=== PATIENT | male | born 1935 | race Caucasian/White ===

== ENCOUNTER 2018-01-16 11:04 | Observation (INO) ==
--- NOTE | 2018-01-16 11:49 | ED ---
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 Symptoms started this morning at 9:30 AM 1 hour after eating toast/cheese/a banana. He describes it as a sharp/aching pain in the epigastrium that was radiating into the chest and into the lower belly. Symptoms lasted for 1 hour and then resolved. He reports that for the past 3 years he has had similar but more mild pain on a regular basis, typically postprandial. He was seeing a labor delivery rn at the [facility] as well as specialist at the [facility] for evaluation of this pain in 2014. He was told that there is no obvious etiology for this pain. According to notes he did undergo stenting of the superior mesenteric artery in 2014 with a diagnosis of chronic stenosis. He is currently asymptomatic. He has denied any cough, congestion, shortness of breath, nausea, vomiting, diarrhea, flank pain. He has no other complaints. Primary care physician is Dr. Valencia. Related Data Home Medications Medication Instructions Recorded Confirmed atorvastatin 20 mg PO DAILY 01/16/18 01/16/18 lisinopril-hydrochlorothiazide 1 tab PO DAILY 01/16/18 01/16/18 rivaroxaban 20 mg PO DAILY 01/16/18 01/16/18 Allergies Allergy/AdvReac Type Severity Reaction Status Date / Time No Known Allergies Allergy Verified 01/16/18 11:15 Review of Systems ROS: all other systems reviewed are negative PMFSH Medical History Medical History DVT (deep venous thrombosis) (Acute) Diabetes (Acute) H/O endoscopy (Acute) Hypertension (Acute) Surgical History Surgical History Hx of colonoscopy (Acute) Social History Social History Substance History: No History of Abuse Smoking Status: Never smoker How Often Do You Have a Drink Containing Alcohol: Never Recent Travel in [facility] within the Last 8 Weeks: No Recent Out of Country Travel within the Last 8 Weeks: No Immunization History Tetanus Immunization: Unsure Exam Narrative Exam Narrative: GENERAL: Well-developed well-nourished male in no acute distress SKIN: Warm and dry. HEAD: Atraumatic. Normocephalic. EYES: Pupils equal and round. No scleral icterus. No injection or drainage. ENT: No nasal bleeding or discharge. Mucous membranes pink and moist. NECK: Trachea midline. No JVD. CARDIOVASCULAR: Regular rate and rhythm. No murmur appreciated. RESPIRATORY: No accessory muscle use. Clear to auscultation. Breath sounds equal bilaterally. GASTROINTESTINAL: Abdomen soft, non-tender, nondistended. Hepatic and splenic margins not palpable. MUSCULOSKELETAL: No obvious deformities. No clubbing. No cyanosis. No edema. NEUROLOGICAL: Awake and alert. No obvious cranial nerve deficits. Motor grossly within normal limits. Normal speech. PSYCHIATRIC: Appropriate mood and affect; insight and judgment normal. Course Initial Documented Vital Signs Temperature 97.5 F L 01/16/18 11:09 Pulse Rate 70 01/16/18 11:09 Respiratory Rate 18 01/16/18 11:09 Blood Pressure 176/102 H 01/16/18 11:09 Pulse Oximetry 95 01/16/18 11:09 Last Documented Vital Signs Temperature 97.5 F L 01/16/18 11:09 Pulse Rate 66 01/16/18 11:16 Respiratory Rate 18 01/16/18 11:16 Blood Pressure 176/102 H 01/16/18 11:16 Pulse Oximetry 98 01/16/18 11:16 Medical Decision Making MDM Narrative Medical decision making narrative: The patient was placed on ECG monitoring pulse oximetry. A 12-lead EKG was obtained. Lab work, CT angiogram of the abdomen pelvis ordered. Lab work is been reviewed. Lactic acid is elevated at 3, he was given 1 L normal saline bolus and 2. His liver enzymes are elevated, total bilirubin is 1.3, AST 365, ALT 161. CT angiogram reveals atherosclerotic changes as well as a mildly distended, otherwise unremarkable. At this point in time the plan will be to admit the patient for observation. I discussed with my attending. Medical Screen Exam Complete: Yes Emergency Medical Condition: Yes Differential Diagnosis Differential Diagnosis: Mesenteric ischemia, peptic ulcer disease, gastritis, acute coronary syndrome, aortic dissection, biliary colic Lab Data Result diagrams: 01/16/18 11:55 01/16/18 11:55 Lab Results 01/16/18 01/16/18 01/16/18 Range/Units 11:55 11:55 11:55 WBC 6.4 (4.0-11.0) th/mm3 RBC 4.78 (4.50-5.90) mil/mm3 Hgb 15.6 (13.0-17.0) gm/dL Hct 45.2 (39.0-51.0) % MCV 94.5 (80.0-100.0) fL MCH 32.6 (27.0-34.0) pg MCHC 34.5 (32.0-36.0) % RDW 12.7 (11.6-17.2) % Plt Count 209 (150-450) th/mm3 MPV 9.1 (7.0-11.0) fL Neut % (Auto) 54.5 (16.0-70.0) % Lymph % (Auto) 35.1 (9.0-44.0) % [place] % (Auto) 8.5 H (0.0-8.0) % Eos % (Auto) 1.4 (0.0-4.0) % Baso % (Auto) 0.5 (0.0-2.0) % Neut # (Auto) 3.5 (1.8-7.7) th/mm3 Lymph # (Auto) 2.2 (1.0-4.8) th/mm3 [place] # (Auto) 0.5 (0.0-0.9) th/mm3 Eos # (Auto) 0.1 (0.0-0.4) th/mm3 Baso # (Auto) 0.0 (0.0-0.2) th/mm3 WBC Differential . Differential Comment Auto diff final PT 12.2 H (9.8-11.6) sec INR 1.2 Ratio APTT 30.4 (23.4-31.7) sec Sodium 140 (136-145) meq/L Potassium 3.8 (3.5-5.1) meq/L Chloride 106 (98-107) meq/L Carbon Dioxide 23.3 (21.0-32.0) meq/L Anion Gap 11 (5-15) meq/L BUN 20 H (7-18) mg/dL Creatinine 1.12 (0.60-1.30) mg/dL Estimated GFR 63 L (>89) mL/min Random Glucose 172 H (74-106) mg/dL Lactic Acid (0.4-2.0) mmol/L Calcium 8.6 (8.5-10.1) mg/dL Magnesium 1.9 (1.5-2.5) mg/dL Total Bilirubin 1.3 H (0.2-1.0) mg/dL AST 365 H (15-37) U/L ALT 161 H (12-78) U/L Alkaline Phosphatase 75 (45-117) U/L Total Creatine Kinase 103 (39-308) U/L CK-MB (CK-2) 1.8 (0.5-3.6) ng/mL Troponin I Less than 0.02 L (0.02-0.05) ng/mL Total Protein 7.2 (6.4-8.2) g/dL Albumin 3.9 (3.4-5.0) g/dL Lipase 166 (73-393) U/L Urine Color (Yellw/Straw) Urine Clarity (Clear) Urine pH (5.0-8.5) Ur Specific [place] (1.002-1.035) Urine Protein (Neg-Trace) mg/dL Urine Glucose (UA) (Negative) mg/dL Urine Ketones (Negative) mg/dL Urine Occult Blood (Negative) Urine Nitrate (Negative) Urine Bilirubin (Negative) Urine Urobilinogen (Less than 2) mg/dL Ur Leukocyte Esterase (Negative) Urine RBC (0-3) /hpf Urine WBC (0-5) /hpf Micro UA Comment Ur Microscopic Review Urine Culture Comments 01/16/18 01/16/18 01/16/18 Range/Units 11:55 12:41 14:35 WBC (4.0-11.0) th/mm3 RBC (4.50-5.90) mil/mm3 Hgb (13.0-17.0) gm/dL Hct (39.0-51.0) % MCV (80.0-100.0) fL MCH (27.0-34.0) pg MCHC (32.0-36.0) % RDW (11.6-17.2) % Plt Count (150-450) th/mm3 MPV (7.0-11.0) fL Neut % (Auto) (16.0-70.0) % Lymph % (Auto) (9.0-44.0) % [place] % (Auto) (0.0-8.0) % Eos % (Auto) (0.0-4.0) % Baso % (Auto) (0.0-2.0) % Neut # (Auto) (1.8-7.7) th/mm3 Lymph # (Auto) (1.0-4.8) th/mm3 [place] # (Auto) (0.0-0.9) th/mm3 Eos # (Auto) (0.0-0.4) th/mm3 Baso # (Auto) (0.0-0.2) th/mm3 WBC Differential Differential Comment PT (9.8-11.6) sec INR Ratio APTT (23.4-31.7) sec Sodium (136-145) meq/L Potassium (3.5-5.1) meq/L Chloride (98-107) meq/L Carbon Dioxide (21.0-32.0) meq/L Anion Gap (5-15) meq/L BUN (7-18) mg/dL Creatinine (0.60-1.30) mg/dL Estimated GFR (>89) mL/min Random Glucose (74-106) mg/dL Lactic Acid 3.0 H 2.0 (0.4-2.0) mmol/L Calcium (8.5-10.1) mg/dL Magnesium (1.5-2.5) mg/dL Total Bilirubin (0.2-1.0) mg/dL AST (15-37) U/L ALT (12-78) U/L Alkaline Phosphatase (45-117) U/L Total Creatine Kinase (39-308) U/L CK-MB (CK-2) (0.5-3.6) ng/mL Troponin I (0.02-0.05) ng/mL Total Protein (6.4-8.2) g/dL Albumin (3.4-5.0) g/dL Lipase (73-393) U/L Urine Color Yellow (Yellw/Straw) Urine Clarity Clear (Clear) Urine pH 7.0 (5.0-8.5) Ur Specific [place] 1.016 (1.002-1.035) Urine Protein Negative (Neg-Trace) mg/dL Urine Glucose (UA) Negative (Negative) mg/dL Urine Ketones Negative (Negative) mg/dL Urine Occult Blood Negative (Negative) Urine Nitrate Negative (Negative) Urine Bilirubin Negative (Negative) Urine Urobilinogen Less than 2 (Less than 2) mg/dL Ur Leukocyte Esterase Negative (Negative) Urine RBC 1 (0-3) /hpf Urine WBC 1 (0-5) /hpf Micro UA Comment Culture not ind Ur Microscopic Review Not Reportable Urine Culture Comments Culture not ind Imaging Data Radiologist's impression: Abdomen/Pelvis CTA 01/16/18 12:26 CONCLUSION: 1. Atherosclerotic change seen throughout the arterial system. Metallic stents are seen at the celiac and SMA. 2. Interstitial disease at the lung bases. 3. Nonspecific distended gallbladder. 4. Degenerative change at the lower lumbar spine with grade 1 anterior spondylolisthesis of L4 on L5. Discharge Plan Discharge Disposition Patient Disposition: ED Admit(ED Internal Use Only) Discharge Condition Condition: Stable Discharge Order Discharge Orders: ED Use Only Admit Order (Routine); Ordered 01/16/18 Ordered By: Wally Dugan Discharge Details Diagnosis: Epigastric abdominal pain, Elevated liver enzymes Physicians Team ED Provider: Espinoza Nunez ED Midlevel Provider: Wally Dugan Primary Care Provider: UNKNOWN, Rxs /Orders / Referrals /Forms Prescriptions: No Action atorvastatin 20 mg Tablet 20 mg PO DAILY RF: 0 lisinopril-hydrochlorothiazide 20-12.5 mg Tablet 1 tab PO DAILY RF: 0 rivaroxaban 20 mg Tablet 20 mg PO DAILY RF: 0 Status ED Status: With Doctor
[2018-01-16 12:05] LABS: Baso % (Auto) 0.5 % (0.0-2.0); Eos # (Auto) 0.1 th/mm3 (0.0-0.4); Eos % (Auto) 1.4 % (0.0-4.0); Hematocrit 45.2 % (39.0-51.0); Hemoglobin 15.6 gm/dL (13.0-17.0); Lymph # (Auto) 2.2 th/mm3 (1.0-4.8); Lymph % (Auto) 35.1 % (9.0-44.0); Mean Corpuscular HGB Conc 34.5 % (32.0-36.0); Mean Corpuscular Hemoglobin 32.6 pg (27.0-34.0); Mean Corpuscular Volume 94.5 fL (80.0-100.0); Mean Platelet Volume 9.1 fL (7.0-11.0); Mono # (Auto) 0.5 th/mm3 (0.0-0.9); Mono % (Auto) 8.5 % (0.0-8.0); Neut # (Auto) 3.5 th/mm3 (1.8-7.7); Neut % (Auto) 54.5 % (16.0-70.0); Platelet Count 209 th/mm3 (150-450); Red Blood Count 4.78 mil/mm3 (4.50-5.90); Red Cell Distribution Width 12.7 % (11.6-17.2); White Blood Count 6.4 th/mm3 (4.0-11.0)
[2018-01-16 12:16] LABS: Activated Partial Thrombo Time 30.4 sec (23.4-31.7); INR 1.2 Ratio; Prothrombin Time 12.2 sec (9.8-11.6)
[2018-01-16 12:25] LABS: Albumin 3.9 g/dL (3.4-5.0); Anion Gap 11 meq/L (5-15); Aspartate Aminotransferase 365 U/L (15-37); Blood Urea Nitrogen 20 mg/dL (7-18); Calcium 8.6 mg/dL (8.5-10.1); Carbon Dioxide 23.3 meq/L (21.0-32.0); Chloride 106 meq/L (98-107); Glomerular Filtration Rate 63 mL/min (>89); Glucose,Random 172 mg/dL (74-106); Lipase 166 U/L (73-393); Magnesium 1.9 mg/dL (1.5-2.5); Potassium 3.8 meq/L (3.5-5.1); Sodium 140 meq/L (136-145)
[2018-01-16 12:30] LABS: Alanine Aminotransferase 161 U/L (12-78); Alkaline Phosphatase 75 U/L (45-117); Creatine Kinase 103 U/L (39-308); Total Protein 7.2 g/dL (6.4-8.2)
[2018-01-16 12:42] LABS: Creatine Kinase MB 1.8 ng/mL (0.5-3.6)
[2018-01-16] MEDS ORDERED: Sod Chloride 0.9% Inj 1,000 ML IV.SIG SCH (12:45)
[2018-01-16 12:58] LABS: Bilirubin,Urine Negative (Negative); Clarity,Urine Clear (Clear); Color,Urine Yellow (Yellw/Straw); Glucose,Urine (UA) Negative (Negative); Leukocyte Esterase,Urine Negative (Negative); Nitrite,Urine Negative (Negative); Specific Gravity,Urine 1.016 (1.002-1.035)
--- NOTE | 2018-01-16 16:05 | CT ---
EXAM DATE: 01/16/2018 2:21 PM EST AGE/SEX: 82 years / Male INDICATIONS: Intermittent abdominal pain. CLINICAL DATA: This is the patient's initial encounter. Patient reports that signs and symptoms have been present for > 1 year and indicates a pain score of 5/10. MEDICAL/SURGICAL HISTORY: Carcinoma, colon. Deep venous thrombosis. Hypertension. . SMA stent RADIATION DOSE: 6.59 CTDI (mGy) COMPARISON: [facility], CTA ABDOMEN AND AORTA, 01/31/2016. . TECHNIQUE: Volumetric scanning was performed using a multi-row detector CT scanner during bolus infu noelle of 77 ml Omnipaque 350 (iohexol) nonionic water-soluble contrast as a single exam dose. The d sade was post processed with a variety of visualization algorithms including full volume maximum inten sity projection, multi-planar sliding thin slab reformation, curved planar reformation, and surface r endering techniques. Using automated exposure control and adjustment of the mA and/or kV according t o patient size, radiation dose was kept as low as reasonably achievable to obtain optimal diagnostic quality images. DICOM format image data is available electronically for review and comparison. FINDINGS: Abdominal Aorta: Atherosclerotic calcifications are seen. Metallic stents are seen at the celiac and proximal SMA. Calcified plaque is seen at the proximal renal arteries bilaterally. There is a mild a jong of soft plaque seen at the proximal left renal artery without a significant stenosis identified. Bifurcation: Calcified plaque is seen. Right Pelvis: Calcified plaque is seen. The right common iliac, internal iliac, and external iliac v essels are patent without luminal irregularity. Left Pelvis: Calcified plaque is seen. The left common iliac, internal iliac, and external iliac ves sels are patent and without luminal irregularity. There is some interstitial disease seen at the lung bases. The gallbladder is distended. The right re nal cyst are seen. There is a bowel anastomosis suture seen in the distal sigmoid region. There is gr hola 1 anterior spondylolisthesis of L4 on L5 likely secondary to facet hypertrophy. There is degenera tive change of the lower lumbar spine. CONCLUSION: 1. Atherosclerotic change seen throughout the arterial system. Metallic stents are seen at the darleen c and SMA. 2. Interstitial disease at the lung bases. 3. Nonspecific distended gallbladder. 4. Degenerative change at the lower lumbar spine with grade 1 anterior spondylolisthesis of L4 on L5 . Electronically signed by: Hayes Hui MD 01/16/2018 4:04 PM EST
[2018-01-16] MEDS ORDERED: Bisacodyl 10 MG Supp RECTAL PRN (17:22)
--- NOTE | 2018-01-16 18:54 | P.HPIM ---
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 Pain described to be sudden onset, sharp-burning, intense 10/10, radiated to RUQ,back and towards the navel as well. It lasted about 1 hour including when he arrived ER. It was non exertional. No associated nausea,vomiting. He feels constipated. No associated chest pain, diaphoresis or shortness of breath. Patient usually gets pain about 10 minutes after meals, due to his h/o chronic messenteric ischemia, but it usually does not last long. Since the pain was intense and persistent, he thought he was having a heart attack and he called EMS. He says EMS did ECG on arrival and informed him it was normal, but they gave him NTG which did not stop the pain, hence he was transported to the ER. On presentation to ER, patient had stable vitals, labs remarkable for elevated bilirubin 1.3, elevated transaminases, lactate 3,glucose 173, troponin negative. ECG was in NSR without acute ST-T changes. CT abdo/pelvis did not reveal any acute findings, however, there is mention of non specific distention of gall bladder. Patient reports his pain stopped spontaneously after about 5 minutes in the ER. He received IV fluids in the ER. Repeat lactate trended down to 2. Patient being admitted to CDU for observation. Review of Systems Review of Systems: all other systems reviewed are negative [facility] Medical History Medical History DVT (deep venous thrombosis) (Acute) Diabetes (Acute) H/O endoscopy (Acute) Hypertension (Acute) Surgical History Surgical History Hx of colonoscopy (Acute) Social History Social History Substance History: No History of Abuse Second Hand Smoke Exposure: No Smoking Status: Former smoker Tobacco Type: Cigarettes How Often Do You Have a Drink Containing Alcohol: Never Recent Travel in [facility] within the Last 8 Weeks: No Recent Out of Country Travel within the Last 8 Weeks: No Immunization History Tetanus Immunization: Unsure Medications and Allergies Allergies Allergy/AdvReac Type Severity Reaction Status Date / Time No Known Allergies Allergy Verified 01/16/18 11:15 Home Medications Medication Instructions Recorded Confirmed Type atorvastatin 20 mg PO DAILY 01/16/18 01/16/18 History lisinopril-hydrochlorothiazide 1 tab PO DAILY 01/16/18 01/16/18 History rivaroxaban 20 mg PO DAILY 01/16/18 01/16/18 History Active Medications: Active Medications Al Hydroxide/Mg Hydroxide (Milk Of Magnesia Liq) 30 ml PO Q12H PRN PRN Reason: Mild Constipation Bisacodyl (Dulcolax Supp) 10 mg RECTAL DAILY PRN PRN Reason: SEVERE CONSITIPATION Lactulose (Lactulose Liq) 30 ml PO DAILY PRN PRN Reason: SEVERE CONSITIPATION Ondansetron HCl (Zofran Inj) 4 mg IV.PUSH Q6H PRN PRN Reason: NAUSEA OR VOMITING Senna/Docusate Sodium (Hayley-Colace) 1 tab PO BID [facility] Sennosides (Senokot) 17.2 mg PO Q12H PRN PRN Reason: Moderate Constipation Sodium Chloride (Ns Flush) 2 ml IV.FLUSH PRN PRN PRN Reason: FLUSH AFTER USING IV ACCESS Sodium Chloride (Ns Flush) 2 ml IV.FLUSH PRN PRN PRN Reason: FLUSH AFTER USING IV ACCESS Sodium Chloride (Ns Flush) 2 ml IV.FLUSH BID [facility] Physical Exam Vital signs: Last Vital Signs Temp 97.5 F L 01/16/18 11:09 Pulse 65 01/16/18 17:30 Resp 18 01/16/18 17:30 BP 169/76 H 01/16/18 17:30 Pulse Ox 97 01/16/18 17:30 Intake & Output 01/14/18 01/15/18 01/16/18 01/17/18 06:59 06:59 06:59 06:59 Intake Total 1000 / 1000 Balance 1000 / 1000 Weight 90.718 kg Narrative: GENERAL: elderly man, in fair general condition, not in distress, hard of hearing. HEENT: not pale,anicteric CARDIOVASCULAR: Regular rate and rhythm without murmurs, gallops, or rubs. RESPIRATORY: Clear to auscultation. Breath sounds equal bilaterally. No wheezes , rales, or rhonchi. GASTROINTESTINAL: Abdomen soft, non-tender, nondistended. Normal active bowel sounds MUSCULOSKELETAL: Extremities without clubbing, cyanosis, or edema. NEURO: Alert & Oriented x4 to person, place, time, situation. Moves all ext x4 Results Labs CBC & Chem 7: 01/16/18 11:55 01/16/18 11:55 Imaging Impressions Abdomen/Pelvis CTA 01/16/18 12:26 CONCLUSION: 1. Atherosclerotic change seen throughout the arterial system. Metallic stents are seen at the celiac and SMA. 2. Interstitial disease at the lung bases. 3. Nonspecific distended gallbladder. 4. Degenerative change at the lower lumbar spine with grade 1 anterior spondylolisthesis of L4 on L5. Caprini VTE Risk Assessment Caprini VTE Risk Assessment: Moderate/High Risk (score >= 2) Caprini Risk Assessment Model: Point Value = 1 Point Value = 2 Point Value = 3 Point Value = 5 Age 41-60 Minor surgery BMI > 25 kg/m2 Swollen legs Varicose veins or History of unexplained or recurrent spontaneous Oral contraceptives or hormone replacement Sepsis (< 1 month) Serious lung disease, including pneumonia (< 1 month) Abnormal pulmonary function Acute myocardial infarction Congestive heart failure (< 1 month) History of inflammatory bowel disease Medical patient at bed rest Age 61-74 Arthroscopic surgery Major open surgery (> 45 min) Laparoscopic surgery (> 45 min) Malignancy Confined to bed (> 72 hours) Immobilizing plaster cast Central venous access Age >= 75 History of VTE Family history of VTE Factor V Leiden Prothrombin [id number] Lupus anticoagulant Anticardiolipin antibodies Elevated serum homocysteine Heparin-induced thrombocytopenia Other congenital or acquired thrombophilia Stroke (< 1 month) Elective arthroplasty Hip, pelvis, or leg fracture Acute spinal cord injury (< 1 month) Prophylaxis Regimen: Total Risk Factor Score Risk Level Prophylaxis Regimen 0-1 Low Early ambulation 2 Moderate Order ONE of the following: *Sequential Compression Device (SCD) *Heparin 5000 units SQ BID 3-4 Higher Order ONE of the following medications: *Heparin 5000 units SQ TID *Enoxaparin/Lovenox 40 mg SQ daily (WT < 150 kg, CrCl > 30 mL/min) *Enoxaparin/Lovenox 30 mg SQ daily (WT < 150 kg, CrCl > 10-29 mL/min) *Enoxaparin/Lovenox 30 mg SQ BID (WT < 150 kg, CrCl > 30 mL/min) AND/OR *Sequential Compression Device (SCD) 5 or more Highest Order ONE of the following medications: *Heparin 5000 units SQ TID (Preferred with Epidurals) *Enoxaparin/Lovenox 40 mg SQ daily (WT < 150 kg, CrCl > 30 mL/min) *Enoxaparin/Lovenox 30 mg SQ daily (WT < 150 kg, CrCl > 10-29 mL/min) *Enoxaparin/Lovenox 30 mg SQ BID (WT < 150 kg, CrCl > 30 mL/min) AND *Sequential Compression Device (SCD) Assessment and Plan Plan 82-yo m with h/o HTN, DVT on Xarelto, remote colon cancer, 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 Acute problem: 1.Epigastric pain:seems to have spontaneously subsided. Unclear etiology, but given elevated bilirubin and liver enzymes, differential could be passed gall stone. There is mention of non specific gall bladder swelling. obtain an abdominal ultrasound for further evaluation. He has a h/o chronic mesenteric ischemia, but this pain was out of character from his usual pain. The mild elevation of Lactate may be related to the chronic ischemia. lactate has normalized. I doubt this is cardiac pain, however, he has significant vascular risk, hence will trend troponin. Chronic stable conditions: #HTN-resume home medication #H/o DVT- on Xarelto #Chronic mesenteric ischemia s/p stent--continue statin.
[2018-01-16] MEDS: Rivaroxaban 20 MG Tablet PO SCH (20:00)
[2018-01-16] MEDS: Senna/Docusate Sodium 8.6/50 MG Tablet PO SCH (20:01)
[2018-01-17 07:37] VITALS: RESP 18
[2018-01-17 08:07] LABS: Alanine Aminotransferase 170 U/L (12-78); Albumin 3.7 g/dL (3.4-5.0); Anion Gap 11 meq/L (5-15); Aspartate Aminotransferase 112 U/L (15-37); Blood Urea Nitrogen 15 mg/dL (7-18); Calcium 8.5 mg/dL (8.5-10.1); Carbon Dioxide 23.3 meq/L (21.0-32.0); Chloride 109 meq/L (98-107); Glomerular Filtration Rate 71 mL/min (>89); Glucose,Random 123 mg/dL (74-106); Potassium 3.9 meq/L (3.5-5.1); Sodium 143 meq/L (136-145)
[2018-01-17 08:09] LABS: Alkaline Phosphatase 82 U/L (45-117)
--- NOTE | 2018-01-17 08:57 | US ---
EXAM DATE: 01/17/2018 8:40 AM EST AGE/SEX: 82 years / Male INDICATIONS: Abdominal pain. CLINICAL DATA: This is the patient's initial encounter. Patient reports that signs and symptoms have been present for 1 day and indicates a pain score of 0/10. MEDICAL/SURGICAL HISTORY: Hypertension. Diabetes. Deep vein thrombosis. . Endoscopy. [place] py. COMPARISON: [facility], CTA ABDOMEN & PELVIS W CONTRAST W 3D, 01/16/2018. . MEASUREMENTS: Liver:__ 19.4 cm. Common Bile Duct:___ 7mm. Right Kidney:___13.6 x 5.3 x 5.4 cm. Left Kidney:___10.5 x 4.3 x 5.7 cm. Spleen:___13.0 cm. FINDINGS: Liver: Enlarged with diffusely increased echogenicity without evidence for volume loss. Subtle centr al intrahepatic ductal dilatation. Portal Vein: Hepatopedal flow seen in portal vein. Common Duct: Measures 7 mm which is within normal limits given patient's age. Gallbladder: Gallbladder is distended with sludge in the gallbladder neck. There is a 9 x 18 x 9 mm isoechoic mass which appears to be adherent to the gallbladder wall near the fundus with questionabl e vascularity. Gallbladder wall is thickened given the degree of gallbladder distention measuring up to 3 mm . No pericholecystic fluid or sonographic Glez sign. Pancreas: The visualized portions are within normal limits Right Kidney: There are 2 anechoic cysts in the right kidney measuring 3.8 x 4.1 x 4.9 cm in the mid pole and 1.2 x 0.9 x 1.1 cm in the inferior pole. Otherwise, normal echogenicity and cortical thickn ess without hydronephrosis. Left Kidney: Normal echogenicity and cortical thickness. No mass or hydronephrosis. Ascites: None Pleural Effusion: None Spleen: No focal lesion. Aorta: Non aneurysmal. IVC: Within normal limits Other: None. CONCLUSION: 1. Enlarged echogenic liver consistent with hepatic steatosis. 2. Distended gallbladder containing sludge with mild diffuse gallbladder wall thickening. No signifi cant pericholecystic fluid. Findings are nonspecific but do not exclude acute cholecystitis if patien t has compelling clinical symptoms. 3. 18 mm isoechoic mass in the gallbladder wall fundus with questionable vascularity. Differential c onsiderations include gallbladder mass versus adherent sludge. Electronically signed by: Dylan Anton MD 01/17/2018 8:56 AM EST
[2018-01-17] MEDS ORDERED: Non-Formulary Drug (Lisinopril-Hydrochlorothiazide [Lisinopril-Hydrochlorothiazide] 1 TAB) PO SCH (09:00)
[2018-01-17] MEDS ORDERED: hydroCHLOROthiazide 25 MG Tablet PO SCH (09:00)
[2018-01-17] MEDS ORDERED: Lisinopril 20 MG Tablet PO SCH (09:00)
[2018-01-17] MEDS: Rivaroxaban 20 MG Tablet PO SCH (09:40)
[2018-01-17] MEDS: Senna/Docusate Sodium 8.6/50 MG Tablet PO SCH (09:53)
[2018-01-17 12:34] VITALS: BP 116/64; PULSE 77; TEMP 98.4; O2SAT 95
--- NOTE | 2018-01-17 12:49 | P.PN ---
Subjective Interval history: Nursing denies any acute changes overnight. Patient himself denies any nausea vomiting abdominal pain this morning. Tolerated breakfast as well with no pain. Addendum: Patient tolerated lunch well, medically stable for discharge. Discussed case with general surgery, joint plan of which patient was advised was to take last dose of Xarelto on 01/18/2018 and to follow-up closely with general surgery and office next week for possible cholecystectomy scheduling. Physical Exam Vital signs: Vital Signs 01/16/18 17:30 01/16/18 19:40 01/17/18 00:00 Temperature 98.1 F 97.9 F Pulse Rate 65 83 75 Respiratory Rate 18 18 18 Blood Pressure 169/76 H 141/69 H 145/73 H Pulse Oximetry 97 93 L 95 01/17/18 04:00 01/17/18 07:35 01/17/18 12:00 Temperature 98.0 F 97.6 F 98.4 F Pulse Rate 79 90 77 Respiratory Rate 16 18 18 Blood Pressure 134/74 135/73 116/64 Pulse Oximetry 93 L 93 L 95 Intake & Output 01/16/18 01/17/18 01/17/18 18:59 06:59 18:59 Intake Total 1000 / 1000 Balance 1000 / 1000 Weight 77.111 kg Intake: IV 1000 / 1000 NS Inj 1,000 ML @ 1000 mls/hr 1000 / 1000 IV.SIG BOLUS [facility] Rx#:[id number] Other: Date of Last Bowel Movement 01/17/18 Weight On Admission 77.111 kg Narrative: Abdomen soft, nontender, nondistended Clear lungs bilaterally, unlabored breathing Heart sounds regular rhythm no murmurs Awake alert, no acute distress Results - Labs CBC & Chem 7: 01/16/18 11:55 01/17/18 05:52 Laboratory Results - last 24 hr 01/16/18 01/16/18 01/17/18 12:41 14:35 05:52 Sodium 143 Potassium 3.9 Chloride 109 H Carbon Dioxide 23.3 Anion Gap 11 BUN 15 Creatinine 1.01 Estimated GFR 71 L Random Glucose 123 H Lactic Acid 2.0 Calcium 8.5 Total Bilirubin 1.2 H AST 112 H ALT 170 H Alkaline Phosphatase 82 Troponin I Total Protein 7.0 Albumin 3.7 Urine Color Yellow Urine Clarity Clear Urine pH 7.0 Ur Specific Swoope 1.016 Urine Protein Negative Urine Glucose (UA) Negative Urine Ketones Negative Urine Occult Blood Negative Urine Nitrate Negative Urine Bilirubin Negative Urine Urobilinogen Less than 2 Ur Leukocyte Esterase Negative Urine RBC 1 Urine WBC 1 Micro UA Comment Culture not ind Ur Microscopic Review Not Reportable Urine Culture Comments Culture not ind 01/17/18 10:44 Sodium Potassium Chloride Carbon Dioxide Anion Gap BUN Creatinine Estimated GFR Random Glucose Lactic Acid Calcium Total Bilirubin AST ALT Alkaline Phosphatase Troponin I Less than 0.02 L Total Protein Albumin Urine Color Urine Clarity Urine pH Ur Specific [place] Urine Protein Urine Glucose (UA) Urine Ketones Urine Occult Blood Urine Nitrate Urine Bilirubin Urine Urobilinogen Ur Leukocyte Esterase Urine RBC Urine WBC Micro UA Comment Ur Microscopic Review Urine Culture Comments - Imaging Impressions Abdomen/Pelvis CTA 01/16/18 12:26 CONCLUSION: 1. Atherosclerotic change seen throughout the arterial system. Metallic stents are seen at the celiac and SMA. 2. Interstitial disease at the lung bases. 3. Nonspecific distended gallbladder. 4. Degenerative change at the lower lumbar spine with grade 1 anterior spondylolisthesis of L4 on L5. Abdomen Ultrasound 01/17/18 00:00 CONCLUSION: 1. Enlarged echogenic liver consistent with hepatic steatosis. 2. Distended gallbladder containing sludge with mild diffuse gallbladder wall thickening. No significant pericholecystic fluid. Findings are nonspecific but do not exclude acute cholecystitis if patient has compelling clinical symptoms. 3. 18 mm isoechoic mass in the gallbladder wall fundus with questionable vascularity. Differential considerations include gallbladder mass versus adherent sludge. 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 Acute abdominal pain Postprandial nature, LFTs transiently elevated are now improving, suspicious for cholelithiasis -call this morning Discussed case with general surgery, will do a trial of advance diet for lunch , if stable can be discharged home with close follow-up in the office next week History of DVT 2 yrs ago Can continue Xarelto with last dose on 01/18/2018, appt w/ gen surg in 3 days, anticipated surgery next week
--- NOTE | 2018-01-17 16:02 | P.CONGS ---
[facility] Gen Surgery Consult Note Consult date: 01/17/18 Reason for consult: abdominal pain (Distended gallbladder) Requesting physician: Eleazar Caceres Narrative: CONSULTATION NOTE FOR SURGICAL ATTENDING, DR. JAIRO KENDALL This is an 82 year old male with a past medical history of remote colon cancer s /p resection in 2003, SMA syndrome with stenting, DVT and chronic mesenteric ischemia. The patient has had off and on epigastric abdominal pain after eating for the past 2-3 years which would resolve on its own. He has had a work up done at [facility] with no clear etiology of the abdominal pain per the patient. Yesterday, he developed epigastric pain that did not resolve on its own in a timely fashion and he came to the ED. He reports no associated nausea or vomiting. By the time the he arrived to the ED, the pain had resolved. His WBC is normal. His LFTs are elevated. An US of the abdomen revealed a dilated gallbladder containing sludge and stones with gallbladder wall thickening. Of note, the patient is on Xarleto. A General Surgery consultation has been requested. Review of Systems All other systems reviewed negative except as stated in [facility] Ears, Nose, Mouth, and Throat: Reports abnormal hearing PMFSH - History History Provided By: Patient - Medical History Medical History: Medical History (Last Reviewed 01/17/18 @ 16:12 by Jairo Kendall MD) Colon cancer DVT (deep venous thrombosis) H/O endoscopy Hypertension Mesenteric ischemia SMA stenosis - Surgical History Surgical History: Surgical History (Last Reviewed 01/17/18 @ 16:12 by Jairo Kendall MD) History of colon resection Hx of colonoscopy - Social History I have reviewed the patient's Social History: Yes - Tobacco History Second Hand Smoke Exposure: No Tobacco Use In Past 30 Days: No Smoking Status: Former smoker Tobacco Type: Cigarettes - Alcohol History How Often Do You Have a Drink Containing Alcohol: Never - Substance Use History Substance History: No History of Abuse - Travel History Recent Travel in the [place] Within the Last 8 Weeks: No Recent Travel Out of the Country Within the Last 8 Weeks: No - Immunization History Tetanus Immunization: Unsure Medications and Allergies Allergies Allergy/AdvReac Type Severity Reaction Status Date / Time No Known Allergies Allergy Verified 01/16/18 11:15 Home Medications Medication Instructions Recorded Confirmed Type atorvastatin 20 mg PO DAILY 01/16/18 01/16/18 History lisinopril-hydrochlorothiazide 1 tab PO DAILY 01/16/18 01/16/18 History Active Medications: Active Medications Al Hydroxide/Mg Hydroxide (Milk Of Magnesia Liq) 30 ml PO Q12H PRN PRN Reason: Mild Constipation Atorvastatin Calcium (Lipitor) 20 mg PO [facility] Last Admin: 01/16/18 20:01 Dose: 20 mg Bisacodyl (Dulcolax Supp) 10 mg RECTAL DAILY PRN PRN Reason: SEVERE CONSITIPATION Enoxaparin Sodium (Lovenox Inj) 80 mg SQ Q12HR [facility] Hydrochlorothiazide (Hydrodiuril) 12.5 mg PO DAILY [facility] Last Admin: 01/17/18 09:40 Dose: 12.5 mg Lactulose (Lactulose Liq) 30 ml PO DAILY PRN PRN Reason: SEVERE CONSITIPATION Lisinopril (Prinivil) 20 mg PO DAILY [facility] Last Admin: 01/17/18 09:40 Dose: 20 mg Ondansetron HCl (Zofran Inj) 4 mg IV.PUSH Q6H PRN PRN Reason: NAUSEA OR VOMITING Rivaroxaban (Xarelto) 20 mg PO DAILY [facility] Last Admin: 01/17/18 09:40 Dose: 20 mg Senna/Docusate Sodium (Hayley-Colace) 1 tab PO BID [facility] Last Admin: 01/17/18 09:53 Dose: Not Given Sennosides (Senokot) 17.2 mg PO Q12H PRN PRN Reason: Moderate Constipation Sodium Chloride (Ns Flush) 2 ml IV.FLUSH PRN PRN PRN Reason: FLUSH AFTER USING IV ACCESS Sodium Chloride (Ns Flush) 2 ml IV.FLUSH PRN PRN PRN Reason: FLUSH AFTER USING IV ACCESS Sodium Chloride (Ns Flush) 2 ml IV.FLUSH BID [facility] Last Admin: 01/17/18 09:53 Dose: 2 ml Exam Vital signs: Vital Signs 01/16/18 17:30 01/16/18 19:40 01/17/18 00:00 Temperature 98.1 F 97.9 F Pulse Rate 65 83 75 Respiratory Rate 18 18 18 Blood Pressure 169/76 H 141/69 H 145/73 H Pulse Oximetry 97 93 L 95 01/17/18 04:00 01/17/18 07:35 01/17/18 12:00 Temperature 98.0 F 97.6 F 98.4 F Pulse Rate 79 90 77 Respiratory Rate 16 18 18 Blood Pressure 134/74 135/73 116/64 Pulse Oximetry 93 L 93 L 95 Intake & Output 01/16/18 01/17/18 01/17/18 18:59 06:59 18:59 Intake Total 1000 / 1000 Balance 1000 / 1000 Weight 77.111 kg Intake: IV 1000 / 1000 NS Inj 1,000 ML @ 1000 mls/hr 1000 / 1000 IV.SIG BOLUS [facility] Rx#:[id number] Other: Date of Last Bowel Movement 01/17/18 Weight On Admission 77.111 kg Narrative: GENERAL: Very pleasant 82 year old male ambulating in the hallways. SKIN: Warm and dry. HEAD: Atraumatic. Normocephalic. EYES: Pupils equal and round. No scleral icterus. No injection or drainage. ENT: No nasal bleeding or discharge. Mucous membranes pink and moist. NECK: Trachea midline. CARDIOVASCULAR: Regular rate and rhythm. RESPIRATORY: No accessory muscle use. Clear to auscultation. Breath sounds equal bilaterally. GASTROINTESTINAL: Abdomen soft, non-tender, nondistended. Well healed large transverse incision. MUSCULOSKELETAL: Extremities without clubbing, cyanosis, or edema. No obvious deformities. NEUROLOGICAL: Awake and alert. No obvious cranial nerve deficits. Motor grossly within normal limits. Five out of 5 muscle strength in the arms and legs. Normal speech. PSYCHIATRIC: Appropriate mood and affect; insight and judgment normal. Results - Labs 01/16/18 11:55 01/17/18 05:52 Laboratory Results - last 24 hr 01/17/18 01/17/18 05:52 10:44 Sodium 143 Potassium 3.9 Chloride 109 H Carbon Dioxide 23.3 Anion Gap 11 BUN 15 Creatinine 1.01 Estimated GFR 71 L Random Glucose 123 H Calcium 8.5 Total Bilirubin 1.2 H AST 112 H ALT 170 H Alkaline Phosphatase 82 Troponin I Less than 0.02 L Total Protein 7.0 Albumin 3.7 - Imaging Imaging: ITS Impressions Abdomen/Pelvis CTA 01/16/18 12:26 CONCLUSION: 1. Atherosclerotic change seen throughout the arterial system. Metallic stents are seen at the celiac and SMA. 2. Interstitial disease at the lung bases. 3. Nonspecific distended gallbladder. 4. Degenerative change at the lower lumbar spine with grade 1 anterior spondylolisthesis of L4 on L5. Abdomen Ultrasound 01/17/18 00:00 CONCLUSION: 1. Enlarged echogenic liver consistent with hepatic steatosis. 2. Distended gallbladder containing sludge with mild diffuse gallbladder wall thickening. No significant pericholecystic fluid. Findings are nonspecific but do not exclude acute cholecystitis if patient has compelling clinical symptoms. 3. 18 mm isoechoic mass in the gallbladder wall fundus with questionable vascularity. Differential considerations include gallbladder mass versus adherent sludge. CT scan - abdomen: report reviewed, image reviewed CT scan - pelvis: report reviewed, image reviewed US - abdomen: report reviewed, image reviewed Assessment and Plan - Assessment (1) Chronic cholecystitis Code(s): K81.1 - Chronic cholecystitis Status: Acute Plan: 82 year old male with chronic cholecystitis -Pain resolved -It is a reasonable plan to DC patient today on low fat diet and follow up in the office for elective laparoscopic cholecystectomy -No antibiotics needed at this time -Discussed with Dr. Caceres-- will continue Xarlto through Saturday and hold after that -Follow up with Dr. Kendall Saturday at 1530 -Thank you for this consult (2) residential (current) use of anticoagulants Code(s): Z79.01 - ferry terminal agent (current) use of anticoagulants Status: Acute (3) Elevated liver enzymes Code(s): R74.8 - Abnormal levels of other serum enzymes Status: Acute - Plan Discussed Condition With: Dr. Enoch Caceres Arvind Tammy - Attending Attestation CONSULTATION NOTE FOR SURGICAL ATTENDING, DR. JAIRO KENDALL Patient is pain-free at this point in reviewing his blood work it appears that he may have passed a stone or some sludge from his gallbladder and he is improved at this time. Because of the weekend and he is on his Xarelto I would favor following him up in the office as an outpatient setting and we will set up surgery early next week This was discussed with his who is a patient of mine as well I agree with above assessment and plan. The exam, history, and the medical decision-making described in the above note were completed with the assistance of the mid-level provider. I reviewed and agree with the findings presented. I attest that I had a [id number] encounter with the patient on the same day, and personally performed and documented my assessment and findings in the medical record. The following services were provided during this hospital visit: Chart data review, vital sign assessments/reviewing monitor data Review of consultations notes if present. Medication orders/review and/or management Ordering and/or reviewing lab tests Ordering and/or interpreting/reviewing x-rays and/or diagnostic studies Care of the patient and discussion of the patient with the care team Documentation time To help prompt me to consider important information that might be impacting today's encounter and assessment, Information from prior notes written by myself or my colleagues may have been "brought forward/copy and pasted" into today's note.
[2018-01-17] MEDS ORDERED: Enoxaparin Inj 80 MG/0.8 ML Syringe SQ SCH (21:00)
--- NOTE | 2018-01-18 18:05 | ECG ---
Date Performed: 01/16/2018 Time Performed: 12:31:07 PTAGE: 82 years EKG: Sinus rhythm MODERATE INTRAVENTRICULAR CONDUCTION DELAY NONSPECIFIC T-WAVE ABNORMALITY ABNORMAL ECG PREVIOUS TRACING : 11/17/2014 06.40 DOCTOR: Carrie Rosado Interpretating Date/Time 01/18/2018 17:38:19
== END 2018-01-17 16:47 | disposition home or self-care (01) ==
LOC: NEDA 11:04 → NEPE 11:04 → NEPFCDU 18:32
PROVIDERS: ADMIT Hospitalist; ATTEND Hospitalist
DX: Z90.49 Acquired absence of other specified parts of digestive tract; Z79.899 Other long term (current) drug therapy; K81.1 Chronic cholecystitis; Z85.038 Personal history of other malignant neoplasm of large intestine; K76.0 Fatty (change of) liver, not elsewhere classified; K59.00 Constipation, unspecified; Z87.891 Personal history of nicotine dependence; I10 Essential (primary) hypertension; Z86.718 Personal history of other venous thrombosis and embolism; Z79.01 Long term (current) use of anticoagulants; K82.8 Other specified diseases of gallbladder; M43.16 Spondylolisthesis, lumbar region

== ENCOUNTER 2018-01-21 07:49 | Inpatient (IN) ==
[2018-01-21] MEDS ORDERED: ceFAZolin 2 GM IV; once IV.SIG SCH (08:45)
[2018-01-21] MEDS ORDERED: Metoprolol Tartrate 25 MG Tablet PO ONE (08:46)
[2018-01-21] MEDS ORDERED: Chlorhexidine Gluconate 2% 1 Pack (2 Cloths) TOPICAL ONE (08:46)
[2018-01-21] MEDS ORDERED: Sodium Chlor 0.9% Inj 500 ML IV.SIG SCH (09:00)
[2018-01-21] MEDS ORDERED: fentaNYL Citrate Inj 250 MCG/5 ML Ampul ONE (10:08)
[2018-01-21] MEDS ORDERED: Bupivacaine/Epinephrine 0.5% Inj 50 ML Vial ONE (10:10)
[2018-01-21] MEDS ORDERED: *Meperidine Inj 25 MG/ML Vial PERIprocedural Use ONLY ONE (12:36)
--- NOTE | 2018-01-21 12:38 | P.OP ---
- Preoperative Diagnosis (1) Chronic cholecystitis (2) roasterman (current) use of anticoagulants (3) Umbilical hernia - Postoperative Diagnosis (1) Intra-abdominal adhesions (2) Umbilical hernia (3) Chronic cholecystitis (4) roasterman (current) use of anticoagulants Date of procedure: 01/21/18 Procedure: Laparoscopic cholecystectomy Laparoscopic lysis of adhesions Repair of umbilical hernia Anesthesia: GETA Surgeon: Jairo Kendall MD Pathology: other (Gallbladder) Operation and Findings: PREOPERATIVE DIAGNOSIS: Right upper quadrant pain and cholecystitis Umbilical hernia POSTOP DIAGNOSIS: Fairly inflamed gallbladder at the neck of the gallbladder including the cystic duct Repair umbilical hernia Intra-abdominal adhesions PROCEDURE: Laparoscopic lysis of adhesions Laparoscopic Cholecystectomy Repair umbilical hernia ANESTHESIA: General SURGEON: Jairo Kendall M.D. ASST. please see operating room records PROCEDURE DETAILS The patient was brought to the operating room and after proper identification. The patient was intubated after the induction of appropriate anesthesia. The patient remained under general anesthesia for the duration of the case. The patient was prepped with an antiseptic over the abdomen in the usual fashion and then he was draped in the usual sterile fashion. Following the draping, the pneumoperitoneum was established by an infraumbilical incision dissecting upward into the umbilical hernia and entering the hernia defect there were some adhesions from previous surgery which were taken down with blunt dissection to facilitate placement of the port via a infra-umbilical incision. After direct visualization of the peritoneum, the 5 mm trochars placed below the xiphoid After appropriate insufflation a scope was inserted and the abdomen was visually inspected , he had previous surgery resulting in adhesions along the midline which were taken down via a 5 mm port at the xiphoid and a second working port in the right upper quadrant. A third working port in the midline and the adhesions in the midline were taken down with a combination of blunt dissection hydrodissection and electrocautery. . All port sites were anesthetized with a Marcaine solution. The gallbladder was easily identified. Distended and firm full of fluid, fairly inflamed. There were a many adhesions. No intraabdominal fluid. Upon retraction of the gallbladder, the infundibulum was identified which is fairly inflamed after some blunt dissection, the cystic duct was identified and then skeletonized using the small grasper. The cystic duct is fairly inflamed and with placing the clip the cystic duct is I placed a second clip on the remnant there is no bile leakage Next, a cystic artery was identified and 2 surgical clips on the proximal end and 1 surgical clip on the distal end were applied and this was transected using the laparoscopic scissors. Following this, the gallbladder was easily retracted back and electrocautery was used to dissect the gallbladder fossa. There was a well-established plane. After application of the clips, no further bleeding from this site was appreciated. Hemostasis was attained on the gallbladder fossa using a small amount of electrocautery. Following the removal of the gallbladder from the gallbladder fossa, it was placed in an endobag and subsequently removed from the supraumbilical port site. We double checked for hemostasis at the cystic artery. Also checked the cystic duct stump which showed no bile leakage. Because of the inflammatory response and inflammation of the liver edge and around the cystic duct remnant did place a JONATHAN along the site and used some Minal to assure hemostasis. All ports were then removed The infra-umbilical fascia defect of the umbilical hernia was closed directly with 0 Vicryl and then the dermis was closed at all 3 incision sites with a 4-0 absorbable monofilament in a running subcuticular manner. A JONATHAN was brought out through the right-sided port site and secured to the skin with 3-0 nylon the fascia was closed in a simple interrupted manner. Steri-Strips and dressings were placed over the incision sites. The patient was awakened from anesthesia. The patient was returned to post-anesthesia care unit in a stable condition. DETAIL SPECIFIC TO THIS PROCEDURE: Fairly inflamed gallbladder fairly inflamed cystic duct with white bile within the gallbladder. JONATHAN placed because of the cystic duct inflammation and the amount inflammatory response around the liver Jairo Kendall M.D.
[2018-01-21] MEDS ORDERED: *morphine SULFATE 10 MG/ML PERIprocedure ONLY ONE ×2 (12:48→13:08)
[2018-01-21] MEDS ORDERED: *HYDROmorphone PF Inj 1 MG/ML Ampul PERIprocedural Use ONLY ONE (13:23)
[2018-01-21] MEDS ORDERED: HYDROmorphone PF Inj 0.5 MG/0.5 ML Syringe ONE (15:04)
[2018-01-21] MEDS ORDERED: Post-op Orders (for Pharmacy) OTHER ONE (16:02)
[2018-01-21] MEDS ORDERED: Bisacodyl 10 MG Supp RECTAL PRN (16:02)
[2018-01-21] MEDS ORDERED: Promethazine 25 MG Supp RECTAL PRN (16:02)
[2018-01-21] MEDS: Senna/Docusate Sodium 8.6/50 MG Tablet PO SCH (20:42)
--- NOTE | 2018-01-22 08:17 | P.DCO ---
- Diagnosis (1) Chronic cholecystitis Status: Acute - Home Health Nursing Order: Wound care and dressing changes Instructions: Routine JONATHAN Care - Case Management Consult Case Management Consult-Home Health: Yes - Certification I have seen patient Eusebio Munoz on 01/22/18. My clinical findings support the need for the requested home health care services because: Limited mobility due to disease progression, Deconditioned with increased weakness I certify that my clinical findings support that this patient is homebound because: Post-op weakness
[2018-01-22] MEDS: Rivaroxaban 20 MG Tablet PO SCH (08:24)
[2018-01-22] MEDS: Lisinopril 20 MG Tablet PO SCH (08:24)
[2018-01-22] MEDS: Senna/Docusate Sodium 8.6/50 MG Tablet PO SCH ×2 (08:25→20:13)
[2018-01-22] MEDS ORDERED: Non-Formulary Drug (Lisinopril-Hydrochlorothiazide [Lisinopril-Hydrochlorothiazide] 1 TAB) PO SCH (09:00)
--- NOTE | 2018-01-22 17:36 | P.PNGS ---
Subjective Patient reports: still having pain, tolerating a regular diet, no bowel movement Interval history: DAILY PROGRESS NOTE FOR SURGICAL ATTENDING, DR. RICHARD HOANG Patient needed to be admitted because of intractable pain postop Still having pain Slow saturations on oxygen Complains of right sided chest wall pain right upper quadrant pain right shoulder pain Physical Exam Vital signs: Vital Signs 01/21/18 18:00 01/21/18 20:00 01/21/18 20:43 Temperature 97.7 F 97.9 F Pulse Rate 104 H 106 H Respiratory Rate 20 20 22 Blood Pressure 159/89 H 136/86 Pulse Oximetry 92 L 90 L Pulse Oximetry [Resting on Room Air] Pulse Oximetry [Resting with Oxygen] 01/21/18 21:30 01/22/18 00:00 01/22/18 01:08 Temperature 97.3 F L Pulse Rate 101 H Respiratory Rate 22 20 20 Blood Pressure 148/81 H Pulse Oximetry 88 L Pulse Oximetry [Resting on Room Air] Pulse Oximetry [Resting with Oxygen] 01/22/18 04:00 01/22/18 08:00 01/22/18 12:00 Temperature 97.8 F 98.5 F 97.9 F Pulse Rate 100 H 99 H 91 H Respiratory Rate 18 17 18 Blood Pressure 122/73 127/68 98/55 L Pulse Oximetry 94 L 90 L 94 L Pulse Oximetry [Resting on Room Air] Pulse Oximetry [Resting with Oxygen] 01/22/18 15:40 01/22/18 16:00 Temperature 97.6 F Pulse Rate 98 H Respiratory Rate 18 Blood Pressure 97/54 L Pulse Oximetry 94 L Pulse Oximetry [Resting on Room Air] 86 L Pulse Oximetry [Resting with Oxygen] 94 L Intake & Output 01/21/18 01/22/18 01/22/18 18:59 06:59 18:59 Intake Total 1850 / 1850 580 / 580 Output Total 220 / 220 195 / 195 Balance 1630 / 1630 385 / 385 Weight 76.5 kg 79 kg Intake: IV 250 / 250 100 / 100 Ofirmev Inj 1,000 mg In 100 ml 100 / 100 100 / 100 @ 400 mls/hr IV.SIG ONCE ONE Rx #:[id number] Ancef 2 GM Premix Inj 2 gm In 50 / 50 50 ml @ 100 mls/hr IV.SIG [employer] [facility] Rx#:[id number] Flagyl 500 MG Inj 100 ML @ 100 100 / 100 mls/hr IV.SIG [employer] [facility] Rx#: [id number] Oral 480 / 480 Anesthesia Amount 1600 / 1600 Output: Urine 100 / 100 Estimated Blood Loss 40 / 40 Wound Drainage 180 / 180 95 / 95 Right Lower Abdomen 180 / 180 95 / 95 Other: Date of Last Bowel Movement 01/22/18 Weight On Admission 76.5 kg Narrative: Sitting up in bed Alert at bedside Appears uncomfortable No shortness of breath on oxygen Abdomen soft postsurgical with JONATHAN with serosanguineous drainage Assessment and Plan - Assessment (1) Chronic cholecystitis Code(s): K81.1 - Chronic cholecystitis Status: Acute (2) Acute postoperative pain Code(s): G89.18 - Other acute postprocedural pain Status: Acute (3) Low oxygen saturation Code(s): R79.81 - Abnormal blood-gas level Status: Acute - Plan Patient still requiring IV pain medication postoperatively We will monitor his oxygen saturations Check labs and CBC and chest x-ray - Attending Attestation NOTE FOR SURGICAL ATTENDING, DR. RICHARD HOANG I attest that I had a [id number] encounter with the patient on the same day, and personally performed and documented my assessment and findings in the medical record. The following services were provided during this hospital visit: Chart data review, vital sign assessments/reviewing monitor data Review of consultations notes if present. Medication orders/review and/or management Ordering and/or reviewing lab tests Ordering and/or interpreting/reviewing x-rays and/or diagnostic studies Care of the patient and discussion of the patient with the care team Documentation time To help prompt me to consider important information that might be impacting today's encounter and assessment, Information from prior notes written by myself or my colleagues may have been "brought forward/copy and pasted" into today's note.
[2018-01-22] MEDS: Morphine Sulfate Inj 2 MG/ML Vial IV.PUSH PRN ×2 (18:09→21:38)
[2018-01-23] MEDS: Morphine Sulfate Inj 2 MG/ML Vial IV.PUSH PRN ×3 (05:17→16:11)
[2018-01-23] MEDS: Lisinopril 20 MG Tablet PO SCH (07:59)
[2018-01-23] MEDS: Senna/Docusate Sodium 8.6/50 MG Tablet PO SCH ×2 (08:00→20:46)
[2018-01-23] MEDS: Rivaroxaban 20 MG Tablet PO SCH (08:00)
[2018-01-23 08:20] LABS: Hematocrit 44.2 % (39.0-51.0); Mean Corpuscular Hemoglobin 32.6 pg (27.0-34.0); Mean Corpuscular Volume 95.8 fL (80.0-100.0); Mean Platelet Volume 9.4 fL (7.0-11.0); Platelet Count 231 th/mm3 (150-450); Red Blood Count 4.62 mil/mm3 (4.50-5.90); Red Cell Distribution Width 13.1 % (11.6-17.2); White Blood Count 16.6 th/mm3 (4.0-11.0)
[2018-01-23 08:53] LABS: Calcium 8.8 mg/dL (8.5-10.1); Potassium 4.1 meq/L (3.5-5.1)
--- NOTE | 2018-01-23 10:45 | XR ---
EXAM DATE: 01/23/2018 10:42 AM EST AGE/SEX: 82 years / Male INDICATIONS: . Low saturations CLINICAL DATA: This is the patient's initial encounter. Patient reports that signs and symptoms have been present for 4 - 6 days and indicates a pain score of 0/10. MEDICAL/SURGICAL HISTORY: Hypertension. Carcinoma, colon. diabetes Cholecystectomy. colon res ection COMPARISON: C, CHEST SINGLE AP, 11/17/2014. . FINDINGS: Lungs are hypoaerated. Bibasilar airspace disease is noted. Heart and mediastinal structures are stable. CONCLUSION: Hypoaerated lungs with basilar airspace disease Electronically signed by: Vinayak Calloway MD 01/23/2018 10:44 AM EST
--- NOTE | 2018-01-23 15:41 | P.PNGS ---
Subjective Interval history: DAILY PROGRESS NOTE FOR SURGICAL ATTENDING, DR. RICHARD HOANG Up to chair Pain better at the moment but earlier was not controlled Physical Exam Vital signs: Vital Signs 01/22/18 16:00 01/22/18 20:00 01/23/18 00:00 Temperature 97.6 F 98.0 F 98.7 F Pulse Rate 98 H 97 H 100 H Respiratory Rate 18 18 20 Blood Pressure 97/54 L 106/64 103/52 L Pulse Oximetry 94 L 94 L 94 L 01/23/18 08:03 01/23/18 09:17 01/23/18 12:00 Temperature 97.5 F L 97.6 F Pulse Rate 102 H 95 H 100 H Respiratory Rate 16 17 Blood Pressure 85/58 L 112/62 104/60 Pulse Oximetry 95 94 L Intake & Output 01/22/18 01/23/18 01/23/18 18:59 06:59 18:59 Intake Total 1200 / 1200 380 / 380 100 / 100 Output Total 35 / 35 Balance 1165 / 1165 380 / 380 100 / 100 Weight 80 kg Intake: IV 100 / 100 Ofirmev Inj 1,000 mg In 100 ml 100 / 100 @ 400 mls/hr IV.SIG ONCE ONE Rx #:[id number] Oral 1200 / 1200 380 / 380 Output: Wound Drainage 35 / 35 Right Lower Abdomen 35 / 35 Other: # Voids 4 2 Date of Last Bowel Movement 01/22/18 01/22/18 01/20/18 # Bowel Movements 0 Narrative: Alert and awake Abd: soft; JONATHAN with dark red/brown drainage; thin RUQ tenderness - Urinary Catheter Management Indwelling Urethral Catheter Cath placed during this visit: yes Reason for continuing: Hourly intake/output Insertion date: 01/25/18 Results - Labs 01/25/18 04:49 01/23/18 07:15 Laboratory Results - last 24 hr 01/23/18 01/23/18 07:15 07:15 WBC 16.6 H RBC 4.62 Hgb 15.0 Hct 44.2 MCV 95.8 MCH 32.6 MCHC 34.0 RDW 13.1 Plt Count 231 MPV 9.4 Sodium 133 L Potassium 4.1 Chloride 97 L Carbon Dioxide 28.0 Anion Gap 8 BUN 34 H Creatinine 1.61 H Estimated GFR 41 L Random Glucose 159 H Calcium 8.8 - Imaging Imaging: ITS Impressions Chest X-Ray 01/23/18 06:00 CONCLUSION: Hypoaerated lungs with basilar airspace disease Assessment and Plan - Assessment (1) Chronic cholecystitis Code(s): K81.1 - Chronic cholecystitis Status: Acute Plan: 82 year old male POD2 lap francisca with drain placement -Increased frequency of Munger; added Ofirmev x 1 dose -Regular diet -Check LFTs and amylase -CXR shows hypoinflated lungs; added IS (2) Acute postoperative pain Code(s): G89.18 - Other acute postprocedural pain Status: Acute (3) Low oxygen saturation Code(s): R79.81 - Abnormal blood-gas level Status: Acute - Attending Attestation NOTE FOR SURGICAL ATTENDING, DR. RICHARD HOANG I agree with above assessment and plan. The exam, history, and the medical decision-making described in the above note were completed with the assistance of the mid-level provider. I reviewed and agree with the findings presented. I attest that I had a [id number] encounter with the patient on the same day, and personally performed and documented my assessment and findings in the medical record. The following services were provided during this hospital visit: Chart data review, vital sign assessments/reviewing monitor data Review of consultations notes if present. Medication orders/review and/or management Ordering and/or reviewing lab tests Ordering and/or interpreting/reviewing x-rays and/or diagnostic studies Care of the patient and discussion of the patient with the care team Documentation time To help prompt me to consider important information that might be impacting today's encounter and assessment, Information from prior notes written by myself or my colleagues may have been "brought forward/copy and pasted" into today's note.
[2018-01-23 18:32] LABS: Albumin 3.2 g/dL (3.4-5.0)
[2018-01-23 18:34] LABS: Total Protein 7.1 g/dL (6.4-8.2)
[2018-01-24] MEDS: Morphine Sulfate Inj 2 MG/ML Vial IV.PUSH PRN ×2 (01:38→08:36)
[2018-01-24] MEDS: Senna/Docusate Sodium 8.6/50 MG Tablet PO SCH ×2 (08:17→21:30)
[2018-01-24] MEDS: Lisinopril 20 MG Tablet PO SCH (08:18)
[2018-01-24] MEDS: Rivaroxaban 20 MG Tablet PO SCH (08:18)
[2018-01-24] MEDS ORDERED: Ketorolac Inj 30 MG/ML (IVP) Vial IV.PUSH ONE (09:18)
[2018-01-24] MEDS ORDERED: Naloxone Inj 0.4 MG/ML Vial IV.PUSH PRN (09:18)
--- NOTE | 2018-01-24 10:16 | P.PNGS ---
Subjective Interval history: Ambulating in his room although very painful Not able to lay down Physical Exam Vital signs: Vital Signs 01/23/18 12:00 01/23/18 16:00 01/23/18 16:45 Temperature 97.6 F 97.1 F L 97.5 F L Pulse Rate 100 H 105 H 118 H Respiratory Rate 17 18 24 Blood Pressure 104/60 90/67 L 119/65 Pulse Oximetry 94 L 96 97 01/23/18 20:00 01/24/18 00:00 01/24/18 04:00 Temperature 97.6 F 97.7 F 97.7 F Pulse Rate 101 H 95 H 92 H Respiratory Rate 18 18 18 Blood Pressure 106/62 117/65 114/57 L Pulse Oximetry 95 95 96 01/24/18 08:00 Temperature 97.1 F L Pulse Rate 90 Respiratory Rate 18 Blood Pressure 113/58 L Pulse Oximetry 98 Intake & Output 01/23/18 01/24/18 01/24/18 18:59 06:59 18:59 Intake Total 580 / 580 320 / 320 100 / 100 Output Total 450 / 450 325 / 325 Balance 130 / 130 -5 / -5 100 / 100 Weight 78.9 kg Intake: IV 100 / 100 200 / 200 100 / 100 Ofirmev Inj 1,000 mg In 100 ml 100 / 100 200 / 200 100 / 100 @ 400 mls/hr IV.SIG Q6H [facility] Rx# :[id number] Oral 480 / 480 120 / 120 Output: Urine 400 / 400 300 / 300 Wound Drainage 50 / 50 25 / 25 Right Lower Abdomen 50 / 50 25 / 25 Other: # Voids 3 2 Date of Last Bowel Movement 01/20/18 01/20/18 # Bowel Movements 0 Narrative: Alert and awake JONATHAN with dark red drainage; RUQ tenderness Results - Labs 01/24/18 10:00 01/23/18 07:15 Laboratory Results - last 24 hr 01/23/18 17:39 Total Bilirubin 1.4 H Direct Bilirubin 0.5 H Indirect Bilirubin 0.9 H AST 25 ALT 51 Alkaline Phosphatase 65 Total Protein 7.1 Albumin 3.2 L Amylase 31 - Imaging Imaging: ITS Impressions Chest X-Ray 01/23/18 06:00 CONCLUSION: Hypoaerated lungs with basilar airspace disease Assessment and Plan - Assessment (1) Chronic cholecystitis Code(s): K81.1 - Chronic cholecystitis Status: Acute Plan: 82 year old male POD3 lap francisca with drain placement -Continue Ullin; added SKEET OPERATOR -Check CBC/LFTs/Amylase/Lipase this morning -Regular diet as tolerated -Continue IS -Asked Callie RN to get patient recliner chair (2) Acute postoperative pain Code(s): G89.18 - Other acute postprocedural pain Status: Acute (3) Low oxygen saturation Code(s): R79.81 - Abnormal blood-gas level Status: Acute - Plan Patient seen with INJECTION MOLDING MACHINE SETTER who documented our visit. Pt very painful. Will add SKEET OPERATOR and toradol. DRain with old dark blood. Recheck labs. D/W Dr Kendall and he agrees. DW at bedside. NURYS ABRAHAM MD FACS
[2018-01-24 10:32] LABS: Baso % (Auto) 0.3 % (0.0-2.0); Eos % (Auto) 0.1 % (0.0-4.0); Hematocrit 42.6 % (39.0-51.0); Hemoglobin 14.6 gm/dL (13.0-17.0); Lymph # (Auto) 1.1 th/mm3 (1.0-4.8); Lymph % (Auto) 7.5 % (9.0-44.0); Mean Corpuscular HGB Conc 34.3 % (32.0-36.0); Mean Corpuscular Volume 96.2 fL (80.0-100.0); Mean Platelet Volume 9.3 fL (7.0-11.0); Mono # (Auto) 1.3 th/mm3 (0.0-0.9); Mono % (Auto) 9.5 % (0.0-8.0); Neut # (Auto) 11.7 th/mm3 (1.8-7.7); Neut % (Auto) 82.6 % (16.0-70.0); Platelet Count 198 th/mm3 (150-450); Red Blood Count 4.42 mil/mm3 (4.50-5.90); Red Cell Distribution Width 12.8 % (11.6-17.2); White Blood Count 14.2 th/mm3 (4.0-11.0)
[2018-01-24 11:06] LABS: Albumin 3.2 g/dL (3.4-5.0)
[2018-01-24 11:10] LABS: Total Protein 7.3 g/dL (6.4-8.2)
[2018-01-24] MEDS: Morphine Inj 30 MG/30 ML PCA.VIAL PCA PRN ×2 (11:11→16:55)
[2018-01-25] MEDS ORDERED: Sod Chloride 0.9% Inj 1,000 ML IV.SIG SCH (04:30)
[2018-01-25 05:00] LABS: Baso # (Auto) 0.1 th/mm3 (0.0-0.2); Baso % (Auto) 0.3 % (0.0-2.0); Eos % (Auto) 0.1 % (0.0-4.0); Hematocrit 39.3 % (39.0-51.0); Hemoglobin 13.6 gm/dL (13.0-17.0); Lymph # (Auto) 1.1 th/mm3 (1.0-4.8); Lymph % (Auto) 6.3 % (9.0-44.0); Mean Corpuscular HGB Conc 34.6 % (32.0-36.0); Mean Corpuscular Hemoglobin 32.6 pg (27.0-34.0); Mean Corpuscular Volume 94.4 fL (80.0-100.0); Mean Platelet Volume 8.8 fL (7.0-11.0); Mono # (Auto) 2.4 th/mm3 (0.0-0.9); Mono % (Auto) 13.2 % (0.0-8.0); Neut # (Auto) 14.2 th/mm3 (1.8-7.7); Neut % (Auto) 80.1 % (16.0-70.0); Platelet Count 207 th/mm3 (150-450); Red Blood Count 4.16 mil/mm3 (4.50-5.90); Red Cell Distribution Width 12.9 % (11.6-17.2); White Blood Count 17.8 th/mm3 (4.0-11.0)
--- NOTE | 2018-01-25 05:13 | P.PNADD ---
Addendum to Inpatient Note Reason for Addendum: Additional Documentation Additional information: Tyesha Note: Resident team called at 4:36 AM for Tyesha. Tyesha called for low blood pressures and increasing abdominal pain. Upon arrival to the room, nurse states that they did a bladder scan and patient put out 1 L of urine with Garcia catheter. States that she already has contacted Dr. Kendall. Dr. Kendall has given orders for patient to receive 1 L of fluid and be transferred to the ICU. Patient blood pressure responsive to bolus of fluid. Patient lying in bed, on liter nasal cannula. Patient able to nod yes or no and seems to be comfortable. Vitals: Temperature 97.3, pulse 94, blood pressure after receiving 1 L fluid increase from 84/44 to 103/60. Pulse ox 96% on 5 L nasal cannula. General: Lying in bed, has eyes closed, appears to be comfortable Cardio: Regular rate rhythm, no murmurs rubs or gallops,capillary refills<2 secs , radial pulse 2+ Pulmonary: Clear to auscultation bilaterally, no wheezes or crackles Abdomen: Surgical sites covered in bandage, slight ecchymosis noted around incision site, clean, no drainage. Wound drain in place. Positive bowel sounds. Nontender. Nondistended. No guarding. Extremities: No cyanosis or edema Assessment and plan: 82-year-old male postop day 4 lap francisca with drain placement. Tyesha called due to low blood pressures and increasing abdominal pain. -Abdominal pain resolved after Garcia catheter was placed, draining 1 L of urine -Blood pressure adequately responsive after receiving 1L fluid bolus of NS -Patient will be transferred to ICU for further management saraiw Dr. Aguilera
[2018-01-25 05:34] LABS: Platelet Estimate Normal (Normal); Platelet Morphology Normal (Normal); RBC Morphology Normal (Normal)
[2018-01-25] MEDS ORDERED: Sod Chloride 0.9% Inj 1,000 ML IV.SIG ONE ×2 (07:30→12:00)
[2018-01-25] MEDS: Lisinopril 20 MG Tablet PO SCH (08:27)
[2018-01-25] MEDS: Senna/Docusate Sodium 8.6/50 MG Tablet PO SCH ×2 (09:14→20:59)
[2018-01-25] MEDS: Rivaroxaban 20 MG Tablet PO SCH (09:14)
[2018-01-25 10:31] LABS: Alanine Aminotransferase 26 U/L (12-78); Albumin 2.3 g/dL (3.4-5.0); Alkaline Phosphatase 65 U/L (45-117); Anion Gap 6 meq/L (5-15); Aspartate Aminotransferase 14 U/L (15-37); Blood Urea Nitrogen 41 mg/dL (7-18); Calcium 7.7 mg/dL (8.5-10.1); Chloride 107 meq/L (98-107); Glomerular Filtration Rate 42 mL/min (>89); Glucose,Random 148 mg/dL (74-106); Potassium 4.6 meq/L (3.5-5.1); Sodium 140 meq/L (136-145); Total Protein 5.7 g/dL (6.4-8.2)
[2018-01-25] MEDS ORDERED: Diatrizoate Meglum/Diatrizoate Sod Liq 9 ML UDC PO ONE (11:00)
--- NOTE | 2018-01-25 13:18 | P.CONCC ---
History of Present Illness Service: Critical care medicine Consult date: 01/25/18 Requesting Physician: Jairo Kendall Reason for Consult: Hypotension, abdominal pain Primary Care Provider: Abel Valencia MD Chief Complaint: Abdominal pain History of Present Illness: This 82-year-old gentleman underwent laparoscopic cholecystectomy a few days ago and has had persistent abdominal pain for the past 24 hours. He developed hypotension with a blood pressure of 88/58 earlier today and at that time a Garcia catheter was placed returning over liter of urine. He subsequently rapidly diuresed another 400 mL's. He remains uncomfortable on transfer to the ICU and despite pain his blood pressure is 90 systolic. He does not appear septic or toxic on arrival and remains conversant and oriented. Pulse rate is 92. Review of the labs is pretty benign. The source of the pain and hypertension at this point is little unclear and a workup is in progress. Review of Systems Abdominal pain. No chest pain or shortness of breath. PMFSH - History History Provided By: Patient, Family Member - Medical History Medical History: Medical History (Last Reviewed 01/21/18 @ 08:38 by Kierra Vincent) Colon cancer DVT (deep venous thrombosis) H/O endoscopy Hypertension Mesenteric ischemia SMA stenosis - Surgical History Surgical History: Surgical History (Last Reviewed 01/21/18 @ 08:38 by Kierra Vincent) History of colon resection Hx of colonoscopy - Tobacco History Second Hand Smoke Exposure: No Smoking Status: Former smoker Tobacco Type: Cigarettes - Alcohol History How Often Do You Have a Drink Containing Alcohol: Never - Substance Use History Substance History: No History of Abuse - Travel History Recent Travel in the [place] Within the Last 8 Weeks: No Recent Travel Out of the Country Within the Last 8 Weeks: No - Immunization History Tetanus Immunization: Unsure Hx Influenza Vaccine This Season: No Medications and Allergies Active Medications: Active Medications Hydrocodone Bitart/Acetaminophen ([place] 10/325) 1 tab PO Q4H PRN PRN Reason: pain 6-10 Last Admin: 01/24/18 21:31 Dose: 1 tab Hydrocodone Bitart/Acetaminophen ([place] 5/325) 1 tab PO Q4H PRN PRN Reason: pain 1-5 Al Hydroxide/Mg Hydroxide (Milk Of Magnesia Liq) 30 ml PO Q12H PRN PRN Reason: Mild Constipation Atorvastatin Calcium (Lipitor) 20 mg PO DAILY [facility] Last Admin: 01/25/18 09:14 Dose: 20 mg Bisacodyl (Dulcolax Supp) 10 mg RECTAL DAILY PRN PRN Reason: SEVERE CONSITIPATION Cyclobenzaprine HCl (Flexeril) 10 mg PO Q8H PRN PRN Reason: muscle spasms Last Admin: 01/24/18 21:30 Dose: 10 mg Hydrochlorothiazide (Microzide) 12.5 mg PO DAILY [facility] Last Admin: 01/25/18 08:27 Dose: Not Given Sodium Chloride (Ns Inj) 500 mls @ 30 mls/hr IV.SIG .Q10H [facility] Last Admin: 01/21/18 09:04 Dose: Not Given Acetaminophen (Ofirmev Inj) 1,000 mg in 100 mls @ 400 mls/hr IV.SIG Q6H [facility] Last Admin: 01/25/18 12:59 Dose: 400 mls/hr Morphine Sulfate (Morphine Inj) 30 mg in 30 mls @ 0 mls/hr HAND BOOKED FOLDER AND STITCHER UNSCH PRN PRN Reason: prn pain Last Admin: 01/24/18 16:55 Dose: 0 mls/hr Lactulose (Lactulose Liq) 30 ml PO DAILY PRN PRN Reason: SEVERE CONSITIPATION Last Admin: 01/24/18 21:30 Dose: 30 ml Lisinopril (Prinivil) 20 mg PO DAILY [facility] Last Admin: 01/25/18 08:27 Dose: Not Given Morphine Sulfate (Morphine Inj) 2 mg IV.PUSH Q3H PRN PRN Reason: BREAKTHROUGH PAIN Last Admin: 01/24/18 08:36 Dose: 2 mg Naloxone HCl (Narcan Inj) 0.4 mg IV.PUSH PRN PRN PRN Reason: Resp rate < 10 Ondansetron HCl (Zofran Odt) 4 mg PO Q6H PRN PRN Reason: NAUSEA OR VOMITING Ondansetron HCl (Zofran Inj) 4 mg IV.PUSH Q6H PRN PRN Reason: NAUSEA OR VOMITING Promethazine HCl (Phenergan) 25 mg PO Q6H PRN PRN Reason: NAUSEA OR VOMITING Promethazine HCl (Phenergan Supp) 25 mg RECTAL Q6H PRN PRN Reason: NAUSEA OR VOMITING Rivaroxaban (Xarelto) 20 mg PO DAILY [facility] Last Admin: 01/25/18 09:14 Dose: 20 mg Senna/Docusate Sodium (Hayley-Colace) 1 tab PO BID [facility] Last Admin: 01/25/18 09:14 Dose: 1 tab Sennosides (Senokot) 17.2 mg PO Q12H PRN PRN Reason: Moderate Constipation Last Admin: 01/23/18 16:12 Dose: 17.2 mg Allergies Allergy/AdvReac Type Severity Reaction Status Date / Time No Known Allergies Allergy Verified 01/21/18 08:38 Home Medications Medication Instructions Recorded Confirmed Type atorvastatin 20 mg PO DAILY 01/16/18 01/21/18 History lisinopril-hydrochlorothiazide 1 tab PO DAILY 01/16/18 01/21/18 History rivaroxaban [Xarelto] 20 mg PO DAILY 01/21/18 01/21/18 History Physical Exam Vital signs: Vital Signs 01/24/18 16:00 01/24/18 20:00 01/24/18 21:31 Temperature 97.4 F L Pulse Rate 99 H Respiratory Rate 22 26 H Blood Pressure 109/61 125/64 Pulse Oximetry 94 L 96 01/25/18 00:00 01/25/18 04:00 01/25/18 04:37 Temperature 97.3 F L 97.3 F L Pulse Rate 95 H 94 H Respiratory Rate 20 20 Blood Pressure 94/52 L 84/44 L Pulse Oximetry 96 96 96 01/25/18 05:33 01/25/18 06:36 01/25/18 07:36 Temperature 97.8 F 98.2 F Pulse Rate 83 87 Respiratory Rate 16 18 Blood Pressure 87/50 L 100/57 L Pulse Oximetry 93 L 97 94 L 01/25/18 08:00 01/25/18 08:22 01/25/18 09:00 Temperature 98.2 F Pulse Rate 87 88 Respiratory Rate 18 18 Blood Pressure 100/57 L 96/52 L Pulse Oximetry 95 96 95 01/25/18 10:00 01/25/18 12:00 Temperature 98.7 F Pulse Rate 89 103 H Respiratory Rate 18 20 Blood Pressure 96/52 L 129/60 Pulse Oximetry 95 99 Intake & Output 01/24/18 01/25/18 01/25/18 18:59 06:59 18:59 Intake Total 580 / 580 320 / 320 3100 / 3100 Output Total 1880 / 1880 25 / 25 Balance 580 / 580 -1560 / -1560 3075 / 3075 Weight 78.9 kg Intake: IV 100 / 100 200 / 200 3100 / 3100 Ofirmev Inj 1,000 mg In 100 ml 100 / 100 200 / 200 100 / 100 @ 400 mls/hr IV.SIG Q6H [facility] Rx# :[id number] NS Inj 1,000 ML @ As Directed 3000 / 3000 IV.SIG BOLUS ONE Rx#:[id number] Oral 480 / 480 120 / 120 Output: Urine 1450 / 1450 Emesis 100 / 100 Wound Drainage 330 / 330 25 / 25 Right Lower Abdomen 330 / 330 25 / 25 Other: # Voids 800 Date of Last Bowel Movement 01/20/18 01/20/18 # Bowel Movements 0 0 Narrative: General: Calm, alert Head: Normocephalic, atraumatic Lungs: Clear bilaterally with comfortable respiratory pattern and no adventitious sounds Heart: Regular rate and rhythm, mild tachycardia at 92, neck veins are not distended. Abdomen: Minimally distended, bowel sounds present, no peritoneal irritation, no guarding. Extremities: Tepid but well-perfused Neuro: Conversant, interactive, cooperative. Speech is clear. Moves 4 extremities to command. - Urinary Catheter Management Indwelling Urethral Catheter Cath placed during this visit: yes Reason for continuing: Hourly intake/output Insertion date: 01/25/18 Assessment and Plan - Problem List (1) Hypotension Code(s): I95.9 - Hypotension, unspecified Status: Acute (2) Elevated liver enzymes Code(s): R74.8 - Abnormal levels of other serum enzymes Status: Acute (3) Chronic cholecystitis Code(s): K81.1 - Chronic cholecystitis Status: Acute (4) [facility] (current) use of anticoagulants Code(s): Z79.01 - nuclear technologist (current) use of anticoagulants Status: Acute (5) Intra-abdominal adhesions Code(s): K66.0 - Peritoneal adhesions (postprocedural) (postinfection) Status : Acute (6) Umbilical hernia Code(s): K42.9 - Umbilical hernia without obstruction or gangrene Status: Acute (7) Acute postoperative pain Code(s): G89.18 - Other acute postprocedural pain Status: Acute - Assessment and Plan Plan: Plan: 1. Transferred to surgical intensive care unit. 2. Hydration with isotonic crystalloid 2 L immediately. 3. Pulse oximetry frequent vital signs. 4. Assure that new Garcia catheter is widely patent. 5. Head of bed up 30 degrees. 6. DVT prophylaxis per surgeon. 7. Chemical peptic ulcer prophylaxis Overall impression: This elderly gentleman underwent a uncomplicated cholecystectomy made more difficult by numerous chronic adhesions within the peritoneal cavity. He developed hypotension and abdominal pain earlier today and he was transferred to the critical care medicine service for ongoing evaluation. It appears now with the advantage of retrospect that most of the discomfort was related to distention of the bladder. Will take us a little longer to sort out the reason behind the hypotension. (1) Hypotension Qualifiers: Hypotension type: hypotension due to hypovolemia Qualified Code(s): I95.89 - Other hypotension; E86.1 - Hypovolemia
--- NOTE | 2018-01-25 14:34 | P.PNGS ---
Subjective Patient reports: feels better, flatus, bowel movement Interval history: DAILY PROGRESS NOTE FOR SURGICAL ATTENDING, DR. RICHARD HOANG Patient was transferred to the intensive care unit for brief episode of hypotension. He was found to have acute urinary retention His pain is all resolved Physical Exam Vital signs: Vital Signs 01/24/18 16:00 01/24/18 20:00 01/24/18 21:31 Temperature 97.4 F L Pulse Rate 99 H Respiratory Rate 22 26 H Blood Pressure 109/61 125/64 Pulse Oximetry 94 L 96 01/25/18 00:00 01/25/18 04:00 01/25/18 04:37 Temperature 97.3 F L 97.3 F L Pulse Rate 95 H 94 H Respiratory Rate 20 20 Blood Pressure 94/52 L 84/44 L Pulse Oximetry 96 96 96 01/25/18 05:33 01/25/18 06:36 01/25/18 07:36 Temperature 97.8 F 98.2 F Pulse Rate 83 87 Respiratory Rate 16 18 Blood Pressure 87/50 L 100/57 L Pulse Oximetry 93 L 97 94 L 01/25/18 08:00 01/25/18 08:22 01/25/18 09:00 Temperature 98.2 F Pulse Rate 87 88 Respiratory Rate 18 18 Blood Pressure 100/57 L 96/52 L Pulse Oximetry 95 96 95 01/25/18 10:00 01/25/18 12:00 01/25/18 13:00 Temperature 98.7 F Pulse Rate 89 103 H 89 Respiratory Rate 18 20 18 Blood Pressure 96/52 L 129/60 129/60 Pulse Oximetry 95 99 94 L 01/25/18 14:00 Temperature Pulse Rate 89 Respiratory Rate 18 Blood Pressure 121/63 Pulse Oximetry 94 L Intake & Output 01/24/18 01/25/18 01/25/18 18:59 06:59 18:59 Intake Total 580 / 580 320 / 320 3200 / 3200 Output Total 1880 / 1880 55 / 55 Balance 580 / 580 -1560 / -1560 3145 / 3145 Weight 78.9 kg Intake: IV 100 / 100 200 / 200 3200 / 3200 Ofirmev Inj 1,000 mg In 100 ml 100 / 100 200 / 200 200 / 200 @ 400 mls/hr IV.SIG Q6H [facility] Rx# :[id number] NS Inj 1,000 ML @ As Directed 3000 / 3000 IV.SIG BOLUS ONE Rx#:[id number] Oral 480 / 480 120 / 120 Output: Urine 1450 / 1450 Emesis 100 / 100 Wound Drainage 330 / 330 55 / 55 Right Lower Abdomen 330 / 330 55 / 55 Other: # Voids 800 Date of Last Bowel Movement 01/20/18 01/20/18 # Bowel Movements 0 0 Narrative: General: Calm, alert Head: Normocephalic, atraumatic Lungs: Clear bilaterally Heart: Regular rate and rhythm, neck veins are not distended. Abdomen: Minimally distended, bowel sounds present, no peritoneal irritation, no guarding. JONATHAN in place pain resolved Extremities no edema Garcia catheter in place Neuro: Conversant, interactive, cooperative. Speech is clear. - Urinary Catheter Management Indwelling Urethral Catheter Cath placed during this visit: yes Reason for continuing: Hourly intake/output Insertion date: 01/25/18 Results - Labs 01/25/18 04:49 01/25/18 09:30 - Imaging Imaging: ITS Impressions Chest X-Ray 01/23/18 06:00 CONCLUSION: Hypoaerated lungs with basilar airspace disease Assessment and Plan - Assessment (1) Chronic cholecystitis Code(s): K81.1 - Chronic cholecystitis Status: Acute Plan: 8 (2) Acute postoperative pain Code(s): G89.18 - Other acute postprocedural pain Status: Acute (3) Low oxygen saturation Code(s): R79.81 - Abnormal blood-gas level Status: Acute (4) Metastatic adenocarcinoma Code(s): C79.9 - Secondary malignant neoplasm of unspecified site Status: Acute - Plan 82 year old male PO lap francisca with drain placement -Increased frequency of [place]; -Regular diet - Patient still requiring IV pain medication postoperatively Check labs Obtain CT scan of abdomen and pelvis Discussed pathology report with the patient's and the patient - Attending Attestation NOTE FOR SURGICAL ATTENDING, DR. RICHARD HOANG I attest that I had a [id number] encounter with the patient on the same day, and personally performed and documented my assessment and findings in the medical record. The following services were provided during this hospital visit: Chart data review, vital sign assessments/reviewing monitor data Review of consultations notes if present. Medication orders/review and/or management Ordering and/or reviewing lab tests Ordering and/or interpreting/reviewing x-rays and/or diagnostic studies Care of the patient and discussion of the patient with the care team Documentation time To help prompt me to consider important information that might be impacting today's encounter and assessment, Information from prior notes written by myself or my colleagues may have been "brought forward/copy and pasted" into today's note.
--- NOTE | 2018-01-25 15:12 | CT ---
EXAM DATE: 01/25/2018 2:55 PM EST AGE/SEX: 82 years / Male INDICATIONS: Abdomen pain for four days. CLINICAL DATA: This is the patient's initial encounter. Patient reports that signs and symptoms have been present for 4 - 6 days and indicates a pain score of 3/10. MEDICAL/SURGICAL HISTORY: Hypertension. Carcinoma, colon. SMA stenosis, DVT. section . RADIATION DOSE: 9.90 CTDI (mGy) COMPARISON: No prior exams available for comparison. TECHNIQUE: Multiple contiguous axial images were obtained through the abdomen. Images were obtained using multiple row detector helical technique. Using automated exposure control and adjustment of the mA and/or kV according to patient size, radiation dose was kept as low as reasonably achievable to o btain optimal diagnostic quality images. DICOM format image data is available electronically for rev iew and comparison. FINDINGS: Abdomen CT: The liver, spleen, pancreas, left kidney, adrenals are unremarkable. Approximate 3.9 cm cyst is prese nt in the right kidney. There is no evidence for any appreciable pathological adenopathy, or bowel ob struction. There is slight fluid in the anterior perihepatic space. There is a small right pleural ef fusion with right lung base consolidation. Slight left lung base atelectasis and/or infiltrate is see n. There is a drain in the right upper quadrant without any significant fluid adjacent to it ending in the lumbar fossa adjacent to surgical clips. Stent is present within the SMA. The region of the il eocecal valve is slightly prominent and may have a lipoma. There are atherosclerotic calcifications involving the aorta and iliac arteries chronic in nature. Pelvic CT: There is no evidence for mass, abscess formation, or any significant adenopathy within the pelvis. T here are scattered diverticuli within the colon mainly the sigmoid colon without signs of diverticuli tis for technique. Garcia catheter is in place and there are gas bubbles in the bladder related to the patient's Garcia. T here is lumbar scoliosis with degenerative changes in the patient's spine convexity towards the right . CONCLUSION: Right pleural effusion, right lung base consolidation and slight left lung base infiltrat e. Electronically signed by: Polo Parish MD Board Certified Radiologist 01/25/2018 3:11 PM EST
[2018-01-26] MEDS: Senna/Docusate Sodium 8.6/50 MG Tablet PO SCH ×2 (08:40→20:44)
--- NOTE | 2018-01-26 08:48 | P.PNCC ---
Subjective Subjective Remarks/Hospital Course: This 82-year-old gentleman underwent laparoscopic cholecystectomy a few days ago and has had persistent abdominal pain for the past 24 hours. He developed hypotension with a blood pressure of 88/58 earlier today and at that time a Garcia catheter was placed returning over liter of urine. He subsequently rapidly diuresed another 400 mL's. He remains uncomfortable on transfer to the ICU and despite pain his blood pressure is 90 systolic. He does not appear septic or toxic on arrival and remains conversant and oriented. Pulse rate is 92. Review of the labs is pretty benign. The source of the pain and hypertension at this point is little unclear and a workup is in progress. 01/26: Abdominal pain has largely resolved. Patient is well hydrated now with susceptible urine output. Abdominal exam is largely benign. CAT scan of the abdomen is largely benign. Noted is consolidation of the right lower lobe with fluid in the major fissure and a surrounding effusion. He continues to breathe comfortably and does not seem to be affected by the right lower lobe process. Objective Vital Signs / I&O: Vital Signs 01/25/18 09:00 01/25/18 10:00 01/25/18 12:00 Temperature 98.7 F Pulse Rate 88 89 103 H Respiratory Rate 18 18 20 Blood Pressure 96/52 L 96/52 L 129/60 Pulse Oximetry 95 95 99 01/25/18 13:00 01/25/18 14:00 01/25/18 16:00 Temperature 97.5 F L Pulse Rate 89 89 96 H Respiratory Rate 18 18 18 Blood Pressure 129/60 121/63 117/61 Pulse Oximetry 94 L 94 L 96 01/25/18 17:00 01/25/18 18:00 01/25/18 20:32 Temperature Pulse Rate 103 H 90 Respiratory Rate 18 20 Blood Pressure 131/61 100/54 L Pulse Oximetry 99 94 L 95 01/25/18 21:00 01/26/18 00:00 01/26/18 00:43 Temperature 98.1 F 98.2 F Pulse Rate 76 79 Respiratory Rate 14 12 Blood Pressure 120/57 L 112/56 L Pulse Oximetry 96 98 96 01/26/18 04:00 01/26/18 07:31 01/26/18 07:48 Temperature 97.9 F 98.2 F Pulse Rate 81 79 Respiratory Rate 15 18 Blood Pressure 128/60 136/63 Pulse Oximetry 97 98 Intake & Output 01/25/18 01/26/18 01/26/18 18:59 06:59 18:59 Intake Total 3600 / 3600 440 / 440 100 / 100 Output Total 1625 / 1625 1600 / 1600 Balance 1974 / 1974 -1160 / -1160 100 / 100 Weight 78.2 kg Intake: IV 3200 / 3200 200 / 200 100 / 100 Ofirmev Inj 1,000 mg In 100 ml 200 / 200 200 / 200 100 / 100 @ 400 mls/hr IV.SIG Q6H FAISAL Rx# :[id number] NS Inj 1,000 ML @ As Directed 3000 / 3000 IV.SIG BOLUS ONE Rx#:[id number] Oral 400 / 400 240 / 240 Output: Urine Amount (Catheter) 1450 / 1450 1500 / 1500 Indwelling Urethral Catheter 1450 / 1450 1500 / 1500 Wound Drainage 175 / 175 100 / 100 Right Lower Abdomen 175 / 175 100 / 100 Other: Date of Last Bowel Movement 01/25/18 01/26/18 01/26/18 # Bowel Movements 2 2 Result Diagrams: 01/25/18 04:49 01/25/18 09:30 Objective Remarks: Narrative: General: Calm, alert Head: Normocephalic, atraumatic Lungs: Clear bilaterally with comfortable respiratory pattern and no adventitious sounds. Decreased breath sounds right base posteriorly. Heart: Regular rate and rhythm, no JVD. Abdomen: Minimally distended, bowel sounds present, no peritoneal irritation, no guarding. Extremities: Warm, well-perfused Neuro: Conversant, interactive, cooperative. Speech is clear. Moves 4 extremities to command. Assessment and Plan - Problem List (1) Hypotension Code(s): I95.9 - Hypotension, unspecified Status: Acute (2) Elevated liver enzymes Code(s): R74.8 - Abnormal levels of other serum enzymes Status: Acute (3) Chronic cholecystitis Code(s): K81.1 - Chronic cholecystitis Status: Acute (4) long term (current) use of anticoagulants Code(s): Z79.01 - long term (current) use of anticoagulants Status: Acute (5) Intra-abdominal adhesions Code(s): K66.0 - Peritoneal adhesions (postprocedural) (postinfection) Status : Acute (6) Umbilical hernia Code(s): K42.9 - Umbilical hernia without obstruction or gangrene Status: Acute (7) Acute postoperative pain Code(s): G89.18 - Other acute postprocedural pain Status: Acute - Assessment and Plan Plan: Plan: 1. Consider transfer to floor. 2. Maintenance hydration with isotonic crystalloid 2 L immediately. 3. Incentive spirometer 4. Assure that new Garcia catheter is widely patent. 5. Head of bed up 30 degrees. 6. DVT prophylaxis per surgeon. 7. Chemical peptic ulcer prophylaxis 8. Mobilization Overall impression: This elderly gentleman underwent a uncomplicated cholecystectomy made more difficult by numerous chronic adhesions within the peritoneal cavity. He developed hypotension and abdominal pain earlier today and he was transferred to the critical care medicine service for ongoing evaluation. It appears now with the advantage of retrospect that most of the discomfort was related to distention of the bladder. Remainder of his evaluation is benign for infection or obstruction. His gallbladder was involved with metastatic disease and institution of the care plan for this is being formulated. (1) Hypotension Qualifiers: Hypotension type: hypotension due to hypovolemia Qualified Code(s): I95.89 - Other hypotension; E86.1 - Hypovolemia
[2018-01-26] MEDS ORDERED: Rivaroxaban 15 MG Tablet PO SCH (09:00)
[2018-01-26] MEDS: Lisinopril 20 MG Tablet PO SCH (09:00)
[2018-01-26] MEDS: Rivaroxaban 20 MG Tablet PO SCH (09:00)
[2018-01-26] MEDS: Loperamide 2 MG Capsule PO PRN (14:00)
--- NOTE | 2018-01-26 18:36 | P.PN ---
Subjective Interval history: Patient feels much better today. Pain has nearly resolved. Physical Exam Vital signs: Vital Signs 01/25/18 20:32 01/25/18 21:00 01/26/18 00:00 Temperature 98.1 F 98.2 F Pulse Rate 76 79 Respiratory Rate 14 12 Blood Pressure 120/57 L 112/56 L Pulse Oximetry 95 96 98 01/26/18 00:43 01/26/18 04:00 01/26/18 07:31 Temperature 97.9 F Pulse Rate 81 Respiratory Rate 15 Blood Pressure 128/60 Pulse Oximetry 96 97 01/26/18 07:48 01/26/18 12:00 01/26/18 16:00 Temperature 98.2 F 98.2 F 97.9 F Pulse Rate 79 87 71 Respiratory Rate 18 18 18 Blood Pressure 136/63 111/58 L 130/66 Pulse Oximetry 98 97 100 Intake & Output 01/25/18 01/26/18 01/26/18 18:59 06:59 18:59 Intake Total 3600 / 3600 440 / 440 550 / 550 Output Total 1625 / 1625 1600 / 1600 1500 / 1500 Balance 1974 / 1974 -1160 / -1160 -950 / -950 Weight 78.2 kg Intake: IV 3200 / 3200 200 / 200 200 / 200 Ofirmev Inj 1,000 mg In 100 ml 200 / 200 200 / 200 200 / 200 @ 400 mls/hr IV.SIG Q6H FAISAL Rx# :[id number] NS Inj 1,000 ML @ As Directed 3000 / 3000 IV.SIG BOLUS ONE Rx#:[id number] Oral 400 / 400 240 / 240 350 / 350 Output: Urine 250 / 250 Urine Amount (Catheter) 1450 / 1450 1500 / 1500 1200 / 1200 Indwelling Urethral Catheter 1450 / 1450 1500 / 1500 1200 / 1200 Wound Drainage 175 / 175 100 / 100 50 / 50 Right Lower Abdomen 175 / 175 100 / 100 50 / 50 Other: Date of Last Bowel Movement 01/25/18 01/26/18 01/26/18 # Bowel Movements 2 2 2 - Constitutional no acute distress - Routine HEENT Exam Head: Present: normocephalic - Routine Abdominal Exam Present: soft Comments: Nondistended and nontender Minimal output from drain - Urinary Catheter Management Indwelling Urethral Catheter Cath placed during this visit: yes, but has since been removed by the nurse Reason for continuing: Decision to DC catheter Insertion date: 01/25/18 Removal date: 01/26/18 Removal time: 15:00 Results - Labs CBC & Chem 7: 01/25/18 04:49 01/25/18 09:30 Assessment and Plan - Assessment (1) Chronic cholecystitis Code(s): K81.1 - Chronic cholecystitis Status: Acute (2) Acute postoperative pain Code(s): G89.18 - Other acute postprocedural pain Status: Acute (3) Low oxygen saturation Code(s): R79.81 - Abnormal blood-gas level Status: Acute (4) Metastatic adenocarcinoma Code(s): C79.9 - Secondary malignant neoplasm of unspecified site Status: Acute Plan: Home in next day or so. Transfer from intensive care to surgical floor this evening - Attending Attestation I attest that I had a [id number] encounter with the patient on the same day, and personally performed and documented my assessment and findings in the medical record. The following services were provided during this hospital visit: Chart data review, vital sign assessments/reviewing monitor data Review of consultation notes if present Medication orders/review and/or management Ordering and/or reviewing lab tests Ordering and/or interpreting/reviewing x-rays and/or diagnostic studies Care of the patient and discussion of the patient with the care team Documentation time To help prompt me to consider important information that might be impacting today's encounter and assessment, Information from prior notes written by myself or my colleagues may have been "brought forward/copy and pasted" into today's note.
[2018-01-27] MEDS: Rivaroxaban 20 MG Tablet PO SCH (08:27)
[2018-01-27] MEDS: Lisinopril 20 MG Tablet PO SCH (08:29)
[2018-01-27] MEDS: Loperamide 2 MG Capsule PO PRN (09:55)
--- NOTE | 2018-01-27 10:40 | P.DS ---
<Mallory Hickey - Last Filed: 01/27/18 16:15> Date of admission: 01/21/18 16:02 Primary care physician: Abel Valencia MD Attending physician on discharge: Jairo Kendall Anticipated date of discharge: 01/27/18 Brief History from admission: This is an 82 year old male s/p laparoscopic cholecystectomy. DS: Diagnosis - Discharge Diagnosis (1) Chronic cholecystitis Status: Acute (2) Acute postoperative pain Status: Acute (3) Low oxygen saturation Status: Acute DS: Medications - Discharge Medications Prescriptions: hydrocodone-acetaminophen [[place]] 1 tab PO Q6H PRN #14 tab PRN Reason: Acute Pain DS: Summary Hospital Course: This is an 82 year old male s/p laparoscopic cholecystectomy. The patient's post op hospitalization was complicated by pain and urinary retention. A Garcia was placed and has now been removed. His pain is much better now. He is able to tolerate a regular diet. His pathology is concerning for carcinoma and this has been discussed with the patient as well as his . He will follow up with medical oncology as an outpatient. He will DC home with his drain. HHC has been arranged. He will follow up in the office on Feb 05. - Time Spent with Patient Total time spent providing and/or coordinating discharge services: Less than 30 minutes - Quality: AMI Clinical Trial Participant: No - Quality: VTE Deep Vein Thrombosis/Pulmonary Embolism Present on Admission: No Exam Vital signs: Vital Signs 01/26/18 12:00 01/26/18 16:00 01/26/18 20:00 Temperature 98.2 F 97.9 F 97.8 F Pulse Rate 87 71 75 Respiratory Rate 18 18 19 Blood Pressure 111/58 L 130/66 157/67 H Pulse Oximetry 97 100 98 01/26/18 20:42 01/27/18 00:00 01/27/18 04:00 Temperature 97.9 F 98.1 F Pulse Rate 64 73 Respiratory Rate 15 13 Blood Pressure 129/63 148/70 H Pulse Oximetry 96 99 98 01/27/18 08:00 01/27/18 09:31 Temperature Pulse Rate Respiratory Rate Blood Pressure Pulse Oximetry 95 97 Intake & Output 01/26/18 01/27/18 01/27/18 18:59 06:59 18:59 Intake Total 550 / 550 320 / 320 Output Total 1545 / 1545 800 / 800 Balance -995 / -995 -480 / -480 Weight 78.7 kg Intake: IV 200 / 200 200 / 200 Ofirmev Inj 1,000 mg In 100 ml 200 / 200 200 / 200 @ 400 mls/hr IV.SIG Q6H FAISAL Rx# :[id number] Oral 350 / 350 120 / 120 Output: Urine 250 / 250 700 / 700 Urine Amount (Catheter) 1200 / 1200 Indwelling Urethral Catheter 1200 / 1200 Wound Drainage 95 / 95 100 / 100 Right Lower Abdomen 95 / 95 100 / 100 Other: Date of Last Bowel Movement 01/26/18 01/26/18 # Bowel Movements 2 Narrative: Alert and awake Abd: Soft; mild ecchymosis around umbilicus; JONATHAN drain with dark red drainage Results Procedures completed during hospitalization: Laparoscopic cholecystectomy Completed studies during hospitalization: Pending at discharge 01/21/18 07:43 Surgical [PTH] Routine - Impressions ITS Impressions Chest X-Ray 01/23/18 06:00 CONCLUSION: Hypoaerated lungs with basilar airspace disease Abdomen/Pelvis CT 01/25/18 00:00 CONCLUSION: Right pleural effusion, right lung base consolidation and slight left lung base infiltrate. <Jairo Kendall - Last Filed: 01/28/18 17:03> Date of admission: 01/21/18 16:02 Primary care physician: Abel Valencia MD DS: Diagnosis - Discharge Diagnosis (1) Chronic cholecystitis Status: Acute (2) Acute postoperative pain Status: Acute (3) Low oxygen saturation Status: Acute (4) Metastatic adenocarcinoma Status: Acute DS: Summary - Time Spent with Patient Total time spent providing and/or coordinating discharge services: Results Completed studies during hospitalization: Pending at discharge 01/21/18 07:43 Surgical [PTH] Routine - Impressions ITS Impressions Chest X-Ray 01/23/18 06:00 CONCLUSION: Hypoaerated lungs with basilar airspace disease Abdomen/Pelvis CT 01/25/18 00:00 CONCLUSION: Right pleural effusion, right lung base consolidation and slight left lung base infiltrate. - Additional Comments NOTE FOR SURGICAL ATTENDING, DR. JAIRO KENDALL I agree with above assessment and plan. The exam, history, and the medical decision-making described in the above note were completed with the assistance of the mid-level provider. I reviewed and agree with the findings presented. I attest that I had a [id number] encounter with the patient on the same day, and personally performed and documented my assessment and findings in the medical record. The following services were provided during this hospital visit: Chart data review, vital sign assessments/reviewing monitor data Review of consultations notes if present. Medication orders/review and/or management Ordering and/or reviewing lab tests Ordering and/or interpreting/reviewing x-rays and/or diagnostic studies Care of the patient and discussion of the patient with the care team Documentation time To help prompt me to consider important information that might be impacting today's encounter and assessment, Information from prior notes written by myself or my colleagues may have been "brought forward/copy and pasted" into today's note. Discharge Plan - Discharge Order Discharge Orders: Discharge Order (Routine); Ordered 01/27/18 Ordered By: Mallory Hickey - Discharge Details Anticipated Discharge Date: 01/27/18 Discharge Comment: rx on chart for [place]; DC home with - Physicians Team Primary Care Provider: Abel Valencia Attending Provider: Jairo Kendall Other Providers: Surgeons,[facility] ; Tho Black MD ; Walter Overton MD - Rxs /Orders / Referrals /Forms Prescriptions: New hydrocodone-acetaminophen [[place]] 5-325 mg Tablet 1 tab PO Q6H PRN (Reason: Acute Pain) Qty: 14 RF: 0 Continue atorvastatin 20 mg Tablet 20 mg PO DAILY lisinopril-hydrochlorothiazide 20-12.5 mg Tablet 1 tab PO DAILY rivaroxaban [Xarelto] 20 mg Tablet 20 mg PO DAILY Referrals: [facility], [Agency] - See Instructions (Start of care 01/28/18. If you have any questions call: [phone]) Jairo Kendall MD [Physician] - (Appt set for SaturdayFeb 05 at 9:45AM ) Abel Valencia MD [Primary Care Provider] - See Instructions - Discharge Instructions Patient Printed Instructions: Hydrocodone/Acetaminophen (By mouth), Laparoscopic Cholecystectomy (DC), General Anesthesia (DC) Additional Instructions: Please keep your follow up appointment- You have an appointment February 05, 2018 @ 5045. Please resume your regular diet Shower Only/NO Bath Please take your prescriptions as directed. Please do not drink alcohol or drive a motorized vehicle while taking the [place] prescription. Please see additional paperwork.
--- NOTE | 2018-01-27 10:53 | P.DCO ---
- Diagnosis (1) Chronic cholecystitis Status: Acute - Home Health Nursing Order: Wound care and dressing changes Instructions: Routine JONATHAN care - Case Management Consult Case Management Consult-Home Health: Yes - Certification I have seen patient Eusebio Munoz on 01/27/18. My clinical findings support the need for the requested home health care services because: Patient has SOB I certify that my clinical findings support that this patient is homebound because: Post-op weakness
--- NOTE | 2018-01-27 11:03 | P.CONIM ---
History of Present Illness Primary Care Provider: Abel Valencia MD History of Present Illness: 82-year-old male with a history of hypertension, DVT , colon cancer, mesenteric ischemia, SMA stenosis underwent a routine cholecystectomy approximately 1 week ago. Surgery was complicated by the presence of multiple adhesions. Following surgery the had urinary retention and became intensive. He was transferred to critical care unit for closer monitoring of his hypertension. The last 2 days there he quickly came back to normotensive status and is currently slightly hypertensive. His bladder was easily decompressed with Garcia catheter and he has had normal urine output since then indicating that this may have been more of an anesthesia effect in a outflow obstruction. He has no current complaints today. Denies any chest pain or cardiac symptoms. Reports normal passage of gas, had bowel movement. Denies any nausea or vomiting. Denies any fevers. Review of Systems Review of Systems: all other systems reviewed are negative [facility] Medical History Medical History Colon cancer (Acute) DVT (deep venous thrombosis) (Acute) H/O endoscopy (Acute) Hypertension (Acute) Mesenteric ischemia (Acute) SMA stenosis (Acute) Surgical History Surgical History History of colon resection (Acute) Hx of colonoscopy (Acute) Family History Family History Other Hypertension Social History Social History Substance History: No History of Abuse Second Hand Smoke Exposure: No Smoking Status: Former smoker Tobacco Type: Cigarettes How Often Do You Have a Drink Containing Alcohol: Never Recent Travel in [facility] within the Last 8 Weeks: No Recent Out of Country Travel within the Last 8 Weeks: No Immunization History Tetanus Immunization: Unsure Hx Influenza Vaccine This Season: Yes Medications and Allergies Allergies Allergy/AdvReac Type Severity Reaction Status Date / Time No Known Allergies Allergy Verified 01/21/18 08:38 Home Medications Medication Instructions Recorded Confirmed Type atorvastatin 20 mg PO DAILY 01/16/18 01/21/18 History lisinopril-hydrochlorothiazide 1 tab PO DAILY 01/16/18 01/21/18 History rivaroxaban [Xarelto] 20 mg PO DAILY 01/21/18 01/21/18 History Active Medications: Active Medications Hydrocodone Bitart/Acetaminophen ([place] 10/325) 1 tab PO Q4H PRN PRN Reason: pain 6-10 Last Admin: 01/24/18 21:31 Dose: 1 tab Hydrocodone Bitart/Acetaminophen ([place] 5/325) 1 tab PO Q4H PRN PRN Reason: pain 1-5 Al Hydroxide/Mg Hydroxide (Milk Of Magnesia Liq) 30 ml PO Q12H PRN PRN Reason: Mild Constipation Atorvastatin Calcium (Lipitor) 20 mg PO DAILY [facility] Last Admin: 01/27/18 08:29 Dose: 20 mg Bisacodyl (Dulcolax Supp) 10 mg RECTAL DAILY PRN PRN Reason: SEVERE CONSITIPATION Cyclobenzaprine HCl (Flexeril) 10 mg PO Q8H PRN PRN Reason: muscle spasms Last Admin: 01/24/18 21:30 Dose: 10 mg Hydrochlorothiazide (Microzide) 12.5 mg PO DAILY [facility] Last Admin: 01/27/18 08:29 Dose: 12.5 mg Sodium Chloride (Ns Inj) 500 mls @ 30 mls/hr IV.SIG .Q10H [facility] Last Admin: 01/21/18 09:04 Dose: Not Given Acetaminophen (Ofirmev Inj) 1,000 mg in 100 mls @ 400 mls/hr IV.SIG Q6H [facility] Last Admin: 01/27/18 08:27 Dose: 400 mls/hr Morphine Sulfate (Morphine Inj) 30 mg in 30 mls @ 0 mls/hr [employer] PRN PRN Reason: prn pain Last Infusion: 01/25/18 06:00 Dose: 0 mls/hr Lactulose (Lactulose Liq) 30 ml PO DAILY PRN PRN Reason: SEVERE CONSITIPATION Last Admin: 01/24/18 21:30 Dose: 30 ml Lisinopril (Prinivil) 20 mg PO DAILY [facility] Last Admin: 01/27/18 08:29 Dose: 20 mg Loperamide HCl (Imodium) 2 mg PO Q6H PRN PRN Reason: DIARRHEA Last Admin: 01/27/18 09:55 Dose: 2 mg Morphine Sulfate (Morphine Inj) 2 mg IV.PUSH Q3H PRN PRN Reason: BREAKTHROUGH PAIN Last Admin: 01/24/18 08:36 Dose: 2 mg Naloxone HCl (Narcan Inj) 0.4 mg IV.PUSH PRN PRN PRN Reason: Resp rate < 10 Ondansetron HCl (Zofran Odt) 4 mg PO Q6H PRN PRN Reason: NAUSEA OR VOMITING Ondansetron HCl (Zofran Inj) 4 mg IV.PUSH Q6H PRN PRN Reason: NAUSEA OR VOMITING Promethazine HCl (Phenergan) 25 mg PO Q6H PRN PRN Reason: NAUSEA OR VOMITING Promethazine HCl (Phenergan Supp) 25 mg RECTAL Q6H PRN PRN Reason: NAUSEA OR VOMITING Rivaroxaban (Xarelto) 20 mg PO DAILY [facility] Last Admin: 01/27/18 08:27 Dose: 20 mg Senna/Docusate Sodium (Hayley-Colace) 1 tab PO BID [facility] Last Admin: 01/26/18 20:44 Dose: Not Given Sennosides (Senokot) 17.2 mg PO Q12H PRN PRN Reason: Moderate Constipation Last Admin: 01/23/18 16:12 Dose: 17.2 mg Physical Exam Vital signs: Last Vital Signs Temp 98.1 F 01/27/18 04:00 Pulse 73 01/27/18 04:00 Resp 13 01/27/18 04:00 BP 148/70 H 01/27/18 04:00 Pulse Ox 97 01/27/18 09:31 Intake & Output 01/25/18 01/26/18 01/27/18 01/28/18 06:59 06:59 06:59 06:59 Intake Total 900 / 900 4040 / 4040 870 / 870 Output Total 1880 / 1880 3225 / 3225 2345 / 2345 Balance -980 / -980 815 / 815 -1475 / -1475 Weight 78.9 kg 78.2 kg 78.7 kg Narrative: General: Calm, alert, alert and oriented x3 Head: Normocephalic, atraumatic Lungs: Clear bilaterally, no crackles or wheezing Heart: Regular rate and rhythm, neck veins are not distended. Abdomen: Minimally distended, bowel sounds present, no peritoneal irritation, no guarding. JONATHAN in place Extremities no edema Garcia catheter in place, normal appearance of urine Neuro: Conversant, interactive, cooperative. Speech is clear. Results Labs CBC & Chem 7: 01/25/18 04:49 01/25/18 09:30 Assessment and Plan (1) Chronic cholecystitis: Code(s): K81.1 - Chronic cholecystitis Status: Acute Plan s/p cholecystectomy Surgery was complicated by presence of multiple adhesions, the patient experienced some postop pain Has had approximately 1 week since his surgery, has recovered well, pain controlled Since I saw him this morning, general surgery has placed the discharge order Hypertension Resolved, seemingly related to urinary retention which is also resolved Urinary retention Patient has had Garcia in place and adequate urine output with no evidence of damage to his kidneys Probably should be removed and urine output should be documented prior to discharge Postop appearance may be related to anesthesia effect If urinary retention persist he should follow-up with urologist to address static causes Disposition Patient is apparently being discharged today and has home health care being arranged by his surgical team with follow-up in place. HEPAS will follow in case there are any further issues
== END 2018-01-27 11:43 | disposition home health service (06) ==
LOC: HSDC 07:49 → HSDI 16:02 → N07 17:32 → N03 01-25 05:13
PROVIDERS: ADMIT Surgery; ATTEND Surgery